=== PATIENT | female | born 1985 | race Caucasian/White ===

== ENCOUNTER 2017-11-19 11:13 | Inpatient (IN) | payer BC, OTHER ==
[~2017-11-19] VITALS: Ht 157.5 cm; Wt 69.9 kg
[~2017-11-19 11:13] MED LIST: CLON0.1T14 PO; GABA-534 PO; HYDR-3895 PO; IBUP-1955 PO; SUMA50TA PO; TRAZ-214 PO
--- NOTE | 2017-11-19 12:10 | NUR ---
Intake Assessment Patient was met in intake office @ 1210. She is accompanied by her Mother and Sister. Patient is alert and oriented, she is anxious and teary eyed. Vital signs : BP 121/81, HR 116, O2 96% and pain level is 7/10. Patient states she relapsed 8 days ago after being sober for 36 days, she was here at [facility] on 11/06/17 for 6 days and then went to [facility] for 30 days but relapsed shortly after due to her unresolved eating disorder and feelings of low self worth and negative emotions, she states this time will be different " because I want to be a good role model for my niece ( who is present in intake office also ) and I'm so sick of this cycle I am in, I just want to get better ". Patient states her PCP is Dr Jae Chen. Patient states that she has been drinking 12 beers or 1.5 L of wine every day for the past 8 days, last consumed 1/2 beer at 10am today 11/19/17. patient will be admitted to unit under the care of Dr Long.
[2017-11-19] MEDS ORDERED: GABA600T2 PO (12:44)
[2017-11-19] MEDS ORDERED: THIAMINE HCL 200 MG/2 ML VIAL IM ONE (12:45)
[2017-11-19] MEDS ORDERED: MIRALAX 17 GM POWD.PACK PO PRN (12:45)
[2017-11-19] MEDS ORDERED: LORAZEPAM 1 MG TABLET PO PRN (12:45)
[2017-11-19] MEDS ORDERED: GABA600T PO (12:45)
[2017-11-19] MEDS ORDERED: MAGNESIUM HYDROXIDE 30 ML LIQUID UDC PO PRN (12:45)
[2017-11-19] MEDS ORDERED: LORAZEPAM 2 MG/1 ML VIAL IM PRN (12:45)
[2017-11-19] MEDS ORDERED: MAG HYDROX/AL HYDROX/SIMETH 30 ML LIQUID UDC PO PRN (12:45)
[2017-11-19] MEDS ORDERED: diphenhydrAMINE 50 MG CAPSULE PO PRN (12:45)
[2017-11-19] MEDS ORDERED: TRAZ150T75 PO (12:46)
[2017-11-19] MEDS ORDERED: DESV100T PO (12:49)
[2017-11-19 12:57] LABS: *URINE HCG, QUAL NEGATIVE (NEGATIVE)
--- NOTE | 2017-11-19 13:00 | NUR ---
Admission Note: Patient is a 32 yr old female who was admitted to [facility] today 11/19/17 for a medically supervised withdrawal from Alcohol ( beer/wine). She is ambulatory with a steady gait and is accompanied by her Mother and Sister, she is oriented x4. Vital signs: BP 121/81, HR 116, T 98, O2 96% RR 20, Ht 5'2" Weight 154 on standing scale. Skin is intact. She reports an allergy to Moxifloxacin, Regular diet , full code , denies any fall or seizure history. She has a past medical history of Severe anxiety disorder, PTSD, Depression, Eating disorder, panic disorder and insomnia. She has a surgical History of Gall bladder Removal in 2014, Gastric Sleeve 2017, right ankle fractures x3, and tail bone fracture. PCP is Dr Jae Chen and Psychiatrist is Dr Puneet Macedo. UDS and blood labs collected. Lung sounds clear and bowel sounds active, no SOB noted. Patient is teary eyed and anxious and states she has pins and needles in her hands and feet, bilateral hand tremors, her stomach is in turmoil and she feels nauseous constantly, Admitting CIWA 25. Patient states that she was here at [facility] 10/06/17 for 6 days and then went to [facility] for 30 days and she relapsed shortly after leaving there. She states that she doesnt know how to deal with her negative emotions, negative body image and feeling of low self worth that cause her to have cravings to drink and this is all affecting her way of life. She states that this time is going to be different " because I don't want to keep struggling and my internal motivator is a desire for a good future for myself. Abuse History: 12 Beers OR 1.5L Wine per day for the past 8 days, last consumed 1 beer @ 10am today 11/19/17. Patient appears slightly intoxicated , VANESSA level is 0.23. patient states no history of SI/HI or psychiatric hospitalizations but has been to treatment many times for her eating disorder and substance abuse: [facility] ( mental Health ) 2006 [facility] 2006 [facility] in [place] ( for Alcohol) 2007 [facility] 2015 [facility] 09/2017 [facility] 10/2017 She states she would like to go to [place] [facility] [place] after detox where she could have help with her eating disorder. She had a period of sobriety from [id number]. Patient instructed on rules/ protocols of the unit and verbalizes understanding. Medications reconciled and sent to pharmacy: Pristiq 100 MG PO QHS.
[2017-11-19 13:05] LABS: *AMPHETAMINE, URINE NEGATIVE (NEGATIVE); *BARBITURATE, URINE NEGATIVE (NEGATIVE); *CANNABINOID, URINE NEGATIVE (NEGATIVE); *COCCAINE, URINE NEGATIVE (NEGATIVE); *OPIATE, URINE NEGATIVE (NEGATIVE); *PHENCYCLIDINE SCREEN,URINE NEGATIVE (NEGATIVE)
--- NOTE | 2017-11-19 13:30 | NUR ---
PRN Ativan Ativan 2MG PO given for admitting CIWA of 25 patient presents with high anxiety/agitation, constant nausea without emesis, bilateral hand tremors, headache, feeling of insides in turmoil, pins and needles in feet and hands and dry mouth. will reassess and monitor
--- NOTE | 2017-11-19 13:30 | NUR ---
PRN Motrin 600mg po and tylenol 650mg po given for headache 610 will reassess
[2017-11-19] MEDS: ACETAMINOPHEN 325 MG TABLET PO PRN ×2 (13:31→20:58)
[2017-11-19] MEDS: LORAZEPAM 1 MG TABLET PO PRN ×4 (13:31→23:04)
[2017-11-19] MEDS: IBUPROFEN 600 MG TABLET PO PRN ×2 (13:31→20:58)
[2017-11-19 13:37] LABS: ETHANOL 234 MG/DL (0-0)
[2017-11-19 13:42] LABS: ALANINE AMINOTRANSFERASE 36 U/L (14-59); ALKALINE PHOSPHATASE 80 U/L (50-136); ASPARTATE AMINOTRANSFERASE 31 U/L (15-37); BILIRUBIN,TOTAL 0.4 mg/dL (0.2-1.0); CARBON DIOXIDE 26 mmol/L (21-32); CHLORIDE 102 mmol/L (98-107); CREATININE 0.4 mg/dL (0.6-1.3); GLUCOSE 110 mg/dL (74-106); MAGNESIUM 1.9 mg/dL (1.8-2.4); POTASSIUM 3.7 mmol/L (3.5-5.1); TOTAL PROTEIN, SERUM 7.4 g/dL (6.4-8.2); UREA NITROGEN, BLOOD 5 mg/dL (7-18)
[2017-11-19] MEDS ORDERED: ONDANSETRON 4 MG/2 ML VIAL IM PRN (13:45)
[2017-11-19 14:03] LABS: BASOPHILS # (AUTO) 0.1 K/uL (0.0-8.0); BASOPHILS % (AUTO) 0.9 % (0.0-2.0); EOSINOPHILS # (AUTO) 0.1 K/uL (0.0-0.7); EOSINOPHILS % (AUTO) 0.6 % (0.0-7.0); HEMATOCRIT 42.8 % (31.2-41.9); HEMOGLOBIN 14.5 g/dL (10.9-14.3); LYMPHOCYTES # (AUTO) 2.2 K/uL (20.0-40.0); LYMPHOCYTES % (AUTO) 23.6 % (20.5-51.5); MEAN CORPUSCULAR HEMOGLOBIN 31.6 uug (24.7-32.8); MEAN CORPUSCULAR HGB CONC 34 g/dL (32.3-35.6); MEAN CORPUSCULAR VOLUME 93.1 fL (75.5-95.3); MONOCYTES # (AUTO) 1.1 K/uL (2.0-10.0); MONOCYTES % (AUTO) 11.6 % (0.0-11.0); NEUTROPHILS # (AUTO) 5.8 K/uL (1.8-8.9); NEUTROPHILS % (AUTO) 63.3 % (38.5-71.5); PLATELET COUNT (AUTO) 293 K/uL (179-408); RED BLOOD CELL COUNT(AUTO) 4.59 MIL/uL (3.63-4.92); WHITE BLOOD COUNT (AUTO) 9.2 K/uL (3.8-11.8)
--- NOTE | 2017-11-19 14:30 | NUR ---
PRN Reassess Motrin and tylenol effective , pain level now 3/10
--- NOTE | 2017-11-19 14:30 | NUR ---
PRN Reassess Ativan 2MG PO effective , CIWA now 17
[2017-11-19] MEDS: ONDANSETRON ODT 4 MG TAB.RAPDIS SL PRN ×2 (15:07→23:07)
--- NOTE | 2017-11-19 15:07 | NUR ---
PRN Zofran Zofran 4MG SL given for reports of constant nausea will reassess
--- NOTE | 2017-11-19 16:00 | NUR ---
CIWA 16 Patient presents with constant nausea, pins and needles in hands and feet, sensitivity to light, lethargy, bilateral hand tremors, increased anxiety and agitation.
--- NOTE | 2017-11-19 16:07 | NUR ---
PRN Reassess Zofran effective, constant nausea is gone , but still has intermittent nausea, instructed to sip on sprite and have some crackers
[2017-11-19 17:03] VITALS: BP 112/80
--- NOTE | 2017-11-19 18:30 | NUR ---
PRN Zofran and Ativan Zofran 4 MG IM given for nausea, dry heaves and vomiting x2 Ativan 2 MG PO given for CIWA 19 and withdrawal symptoms of high anxiety, agitation, restlessness, stomach cramps, bilateral hand tremors and nausea, will endorse to furnace attendant to reassess in 1 hour
--- NOTE | 2017-11-19 18:48 | NUR ---
End Of Shift: Patient is a 32 year old female who was admitted to [facility] 11/19/17 for a medically supervised withdrawal from alcohol ( beer and wine). At this time she is not on any taper but has PRN medications available. PRN medication given on this shift : Ativan 2 MG Po x2, Motrin 600mg PO, Tylenol 650 MG PO and Zofran 4 MG SL and Zofran 4 MG IM. Her withdrawal symptoms present as bilateral hand tremors, nausea/ dry heaves/ vomiting, headache, diaphoresis and high anxiety and agitation. Her last CIWA @ 1830 was 19. She had a fluid intake this shift of 300 ML, 2 voids and O BM. VANESSA level on admission was 0.23. patient also states she battles with an eating disorder Anorexia and Bulimia. Continue to follow MD plan of care and offer support as needed. Endorsed to overnight stocker.
--- NOTE | 2017-11-19 19:15 | NUR ---
START OF SHIFT Patient is a 32-year-old female admitted on 11/19/17 for ETOH withdrawal. Patient is currently not on a taper with PRN medications available for signs and symptoms of withdrawal. Patients last CIWA was 19 per endorsement. Per endorsement, patient received PRN Ativan 2mg x2, PRN Motrin, PRN Tylenol, and PRN Zofran x2; patient reports that PRN medications have been somewhat effective. Upon assessment, patient is alert and oriented. Her chief complaint is nausea; patient received PRN Zofran SL x1 and PRN Zofran IM x1 during day shift. Patient excused herself from PM group due to feeling nauseous. Patient also reports headache 10/10 and states, I hope I can sleep tonight, I usually take Trazodone to help me sleep. Patient is on fall and seizure precautions, denies history of seizure. Safety measures in place, side rails up x2, bed locked in low position, call light within reach. Will continue to monitor.
[2017-11-19 20:00] VITALS: BP 136/93
--- NOTE | 2017-11-19 20:00 | NUR ---
CIWA @ 2000 Patient has a current CIWA of 23; complaining of headache 10/10, constant nausea with "dry heaving" but no emesis, flushing and diaphoresis, high levels of anxiety, and fine tremors. Will administer medication as ordered; will continue to monitor.
--- NOTE | 2017-11-19 20:58 | NUR ---
PRN MOTRIN, TYLENOL, & ATIVAN 2mg Patient has a CIWA of 23 and complains of severe headache, 10/10. PRN Motrin, Tylenol, and Ativan 2mg given PO (for CIWA >16). Safety measures in place, side rails up x2, bed locked in low position, call light within reach. Will monitor for effectiveness.
[2017-11-19] MEDS ORDERED: PATIENT MAY USE OWN MED- MD OK PO SCH (21:45)
[2017-11-19] MEDS ORDERED: IBUPROFEN 600 MG TABLET PO PRN (21:45)
--- NOTE | 2017-11-19 21:58 | NUR ---
PRN MOTRIN, TYLENOL, & ATIVAN REASSESSMENT Patient now has a CIWA of 20, slightly improved since PRN Ativan 2mg was given. Patient reports that her headache has improved; now 6/10 on pain scale. PRN Motrin and Tylenol effective. Safety measures are in place, side rails up x2, bed locked in low position, call light within reach. Will continue to monitor.
[2017-11-19] MEDS: HYDROXYZINE PAMOATE 25 MG CAPSULE PO SCH (22:52)
--- NOTE | 2017-11-19 23:04 | NUR ---
PRN BENADRYL & ATIVAN 2mg Patient currently has a CIWA of 22; PRN Ativan 2mg given PO. Patient reports difficulty sleeping and has requested sleep aid. PRN Benadryl 50mg given PO. Safety measures in place, side rails up x2, bed locked in low position, call light within reach. Will monitor for effectiveness and reassess in one hour.
--- NOTE | 2017-11-19 23:07 | NUR ---
PRN ZOFRAN SL Patient reports that he nausea persists; PRN Zofran given SL. Safety measures in place, call light within reach. Will monitor for effectiveness.
--- NOTE | 2017-11-19 23:37 | NUR ---
PRN ZOFRAN REASSESSMENT Patient appears sleepy and drowsy. When asked if her nausea has improved, patient states, "it's better" without opening her eyes or acknowledging the nurse. PRN Zofran effective in improving patient's nausea. Safety measures are in place, call light is within reach. Will continue to monitor.
[2017-11-20] VITALS: BP 114/79
--- NOTE | 2017-11-20 | NUR ---
CIWA DEFERRED CIWA deferred at this time due to patient sleeping; to be assessed and scored while patient is awake. Patient's BP is 114/79, HR 84, RR 16/min, respirations even and unlabored. Safety measures in place, side rails up x2, bed locked in low position, call light within reach. Will continue to monitor.
--- NOTE | 2017-11-20 00:04 | NUR ---
PRN BENADRYL & ATIVAN REASSESSMENT Patient is observed sleeping in bed with eyes closed, respirations even and unlabored. PRN Benadryl effective. Unable to obtain current CIWA score due to patient sleeping. Safety measures in place, side rails up x2, bed locked in low position, call light within reach. Will continue to monitor.
[2017-11-20] MEDS: HYDROXYZINE PAMOATE 25 MG CAPSULE PO SCH ×3 (01:45→08:52)
--- NOTE | 2017-11-20 01:45 | NUR ---
SCHEDULED VISTARIL HELD Vistaril scheduled for 0145 held and not administered due to patient sleeping.
[2017-11-20 04:00] VITALS: BP 122/86
--- NOTE | 2017-11-20 04:00 | NUR ---
CIWA DEFERRED CIWA deferred at 4AM due to patient sleeping; to be assessed and scored while patient is awake. Patient's respirations are even and unlabored, 16/min. Safety measures in place, side rails up x2, bed locked in low position, call light within reach. Will continue to monitor.
--- NOTE | 2017-11-20 05:30 | NUR ---
CIWA @ 0530 Patient is awake and complains of headache 6/10 and intermittent nausea. Current CIWA is 16. Nurse to administer scheduled Vistaril and PRN Motrin for headache.
[2017-11-20] MEDS: IBUPROFEN 600 MG TABLET PO PRN ×3 (05:38→18:48)
--- NOTE | 2017-11-20 05:38 | NUR ---
PRN MOTRIN Patient reports headache 10/17. PRN Motrin 600mg given PO. Safety measures in place, call light within reach. Will monitor for effectiveness.
--- NOTE | 2017-11-20 06:38 | NUR ---
PRN MOTRIN REASSESSMENT Patient is observed sleeping in bed with eyes closed, respirations even and unlabored. Safety measures in place, call light within reach. Will continue to monitor.
--- NOTE | 2017-11-20 07:14 | NUR ---
END OF SHIFT Patient is a 32-year-old female admitted on 11/19/17 for ETOH withdrawal. Patient is currently not on a taper with PRN medications on hand for signs and symptoms of withdrawal. Patients last CIWA was 16 at 0530 this morning. Patient received the following PRN medications: PRN Ativan 2mg x2, PRN Motrin x2, PRN Tylenol, PRN Benadryl, and PRN Zofran SL; medications were assessed for effectiveness. Patient slept for 7 hours, total intake of 996mL, void x2, stool x0. Patient is on fall and seizure precautions, denies history of seizure. Safety measures in place, side rails up x2, bed locked in low position, call light within reach. Will endorse to day shift.
[2017-11-20 08:00] VITALS: BP 114/75
[2017-11-20] MEDS: ONDANSETRON ODT 4 MG TAB.RAPDIS SL PRN (08:11)
--- NOTE | 2017-11-20 08:11 | NUR ---
START OF SHIFT: Received Pt A/O X 4. She presents with anxious mood and affect. Fine tremors noted . She presents with anxious mood and congruent affect. She reports nausea,h/a 5/10 on pain scale,anxiety,sweats,chills restlessness and irritability. PRN Zofran odt given as ordered to manage nausea before medicating Pt. states she will wait until nausea subsides to take AM meds. Will continue to monitor and manage s/s of w/d.
--- NOTE | 2017-11-20 08:50 | NUR ---
Pt states PRN Zofran was effective in reducing nausea. CIWA 22.PRN Ativan 2 mg PO PRN administered with scheduled. Will monitor effectiveness of PRN medication. Addendum: 11/20/17 at 1030 by JULISSA JAIN RN LANA 22- her s/s of w/d include restlessness,clammy skin,c/o restlessness,sweats,chills,feeling shaky, anxiety and irritability.
[2017-11-20] MEDS: FOLIC ACID 1 MG TABLET PO SCH (08:52)
[2017-11-20] MEDS: MULTIVITAMINS,THERAPEUTIC TABLET PO SCH (08:56)
[2017-11-20] MEDS: THIAMINE HCL 100 MG TABLET PO SCH (08:56)
[2017-11-20] MEDS: GABAPENTIN 300 MG CAPSULE PO SCH ×2 (08:56→12:07)
[2017-11-20] MEDS: LORAZEPAM 1 MG TABLET PO PRN (08:56)
[2017-11-20] MEDS ORDERED: PATIENT MAY USE OWN MED- MD OK PO SCH (09:00)
[2017-11-20] MEDS ORDERED: TUBERCULIN,PURIF.PROT.DERIV. 5 TU/0.1 ML TEST ID ONE (09:00)
[2017-11-20 09:08] LABS: HEPATITIS B SURFACE AG Negative (Negative)
--- NOTE | 2017-11-20 09:50 | NUR ---
Pt states Ativan PRN was effective. CIWA 15. Will continue to monitor and manage s/s of w/d.
[2017-11-20] MEDS ORDERED: 5 DAY TAPER OF LORAZEPAM -SERENITY PROTOCOL PO PRN (11:30)
--- NOTE | 2017-11-20 11:55 | NUR ---
Pt started on 5 d Ativan taper per MD.
[2017-11-20 12:00] VITALS: BP 137/89
[2017-11-20] MEDS: LORAZEPAM 1 MG TABLET PO SCH ×3 (12:07→21:03)
--- NOTE | 2017-11-20 12:08 | NUR ---
CIWA 16 Pt has clammy skin.Fine tremors noted. She has intermittent nausea. She c/o chills,sweats,anxiety,fatigue,restlessness and sensitivity to noise and light. Will continue to monitor.
[2017-11-20 16:00] VITALS: BP 127/86
--- NOTE | 2017-11-20 16:05 | NUR ---
CIWA 17. Clammy skin,fine tremors,anxiety,weakness,fatigue,intermittent h/a and nausea and sensitivity to light and sound noted.
[2017-11-20] MEDS ORDERED: PROMETHAZINE HCL 25 MG TABLET PO PRN (17:45)
[2017-11-20] MEDS ORDERED: LOPERAMIDE HCL 2 MG CAPSULE PO PRN ×2 (17:45)
--- NOTE | 2017-11-20 18:50 | NUR ---
Pt reports nausea,diarrhea and h/a 6/10 on pain scale. PRN Motrin,Phenergan and loperamide given to manage symptoms. Will endorse to night nurse.
--- NOTE | 2017-11-20 19:10 | NUR ---
END OF SHIFT: Pt rested on and off in bed most of day. She c/o nausea,H/A, sweats,chills,fatigue ,weakness and later this afternoon diarrhea. Ativan taper in progress to manage s/s of w/d. Last CI 17. She was given PRN Zofran,Motrin and states they were mildly effective. Imodium and Phenergan given and endorsed to night nurse to monitor effectiveness. She was compliant with increased fluids. Will pass shift report to oncoming night nurse.
--- NOTE | 2017-11-20 19:30 | NUR ---
START OF SHIFT NOTE RECEIVED REPORT FROM DAY SHIFT NURSE. PATIENT IS A 32 YEAR OLD FEMALE ADMITTED FOR ETOH WITHDRAWAL. PATIENT WAS PLACED ON 5 CHERRY ATIVAN TAPER, STARTED TODAY. PATIENT WAS GIVEN PRN IMODIUM , PHENERGAN, MOTRIN AND ZOFRAN. LAST CIWA 17. PATIENT PRESENTS WITH FLAT AFFECT, DEPRESSED MOOD, SAD, WORRIED, ANXIETY, RESTLESSNESS, WANTING TO GO DOWN TO SMOKE , DIARRHEA , NAUSEA, ABDOMINAL CRAMPING, HEADACHE, WEAK, POOR APPETITE, TREMULOUS , EMOTIONAL, TEARY EYES AND SWEATING. SAFETY MEASURES IN PLACE. CALL LIGHT IN REACH. WILL CONTINUE TO MONITOR.
--- NOTE | 2017-11-20 19:48 | NUR ---
PRN PHENERGAN, IMODIUM AND MOTRIN RE-ASSESSMENT PATIENT STATES PHENERGAN. IMODIUM AND MOTRIN INEFFECTIVE. ENCOURAGE FLUIDS. WILL CONTINUE TO MONITOR. Addendum: 11/21/17 at 0651 by MATTEO CALDERON LVN PER PATIENT , SHE WILL GET SCHEDULED MEDICATION THEN WILL REST AFTER AND WILL ASK LATER IF NECESSARY.
[2017-11-20 20:00] VITALS: BP 146/93
--- NOTE | 2017-11-20 20:00 | NUR ---
CIWA ASSESSMENT PATIENT PRESENTS WITH FLAT AFFECT, DEPRESSED MOOD, SAD, WORRIED, ANXIETY, RESTLESSNESS, DIARRHEA , NAUSEA, ABDOMINAL CRAMPING, HEADACHE, WEAK, POOR APPETITE, TREMULOUS , EMOTIONAL, TEARY EYES AND SWEATING. CIWA 20.
[2017-11-20] MEDS: TRAZODONE 100 MG TABLET PO SCH (21:03)
[2017-11-20] MEDS: GABAPENTIN 400 MG CAPSULE PO SCH (21:03)
[2017-11-20] MEDS: SUMATRIPTAN SUCCINATE 50 MG TABLET PO PRN (21:04)
--- NOTE | 2017-11-20 21:04 | NUR ---
PRN IMITREX ADMINISTRATION PATIENT C/O HEADACHE. WILL MONITOR FOR EFFECTIVENESS
[2017-11-20] MEDS: DESVENLAFAXINE 100 MG PO SCH (21:09)
[2017-11-21] VITALS: BP 118/78
[2017-11-21] MEDS: SUMATRIPTAN SUCCINATE 50 MG TABLET PO PRN (00:36)
--- NOTE | 2017-11-21 00:36 | NUR ---
PRN IMITREX ADMINISTRATION PATIENT C/O HEADACHE. WILL MONITOR FOR EFFECTIVENESS
--- NOTE | 2017-11-21 00:36 | NUR ---
CIWA ASSESSMENT PATIENT WOKE UP C/O HEADACHE. PATIENT ANXIOUS, SWEATING AND FINE TREMORS NOTED. CIWA 11.
[2017-11-21 04:00] VITALS: BP 138/94
--- NOTE | 2017-11-21 04:00 | NUR ---
CIWA DEFERRED PATIENT SLEEPING. RESPIRATION EVEN AND UNLABORED. VS REFUSED. WILL CONTINUE TO MONITOR.
--- NOTE | 2017-11-21 07:18 | NUR ---
END OF SHIFT NOTE PATIENT SLEPT 7 HOURS. FLUID INTAKE 796 ML. VOIDED X 1. NO BM. MONITORED PATIENT THROUGHOUT SHIFT. SCHEDULED MEDICATION AND TAPE GIVEN ORDERED, TOLERATED WELL AND NO ADVERSE REACTION. PATIENT PRESENTED WITH FLAT AFFECT, DEPRESSED MOOD, SAD, WORRIED, ANXIETY, DIARRHEA , NAUSEA, ABDOMINAL CRAMPING, HEADACHE, WEAK, POOR APPETITE, TREMULOUS , EMOTIONAL, TEARY EYED AND SWEATING. PATIENT WAS GIVEN PRN IMITREX GIVEN AT 2104. AT 0036, PATIENT WAS C/O HEADACHE, PRN IMITREX GIVEN. PATIENT WAS SEEN BY DR. STOVER DURING SHIFT WITH NO NEW ORDER. . SAFETY MEASURES IN PLACE. CALL LIGHT IN REACH. WILL CONTINUE TO MONITOR . LAST .
[2017-11-21 08:00] VITALS: BP 118/80
--- NOTE | 2017-11-21 08:05 | NUR ---
START OF SHIFT: Received Pt A/O X 4. Ativan taper in progress. CIWA 13. She presents with anxious mood and affect. Fine tremors noted . She reports nausea and H/A 5/10 on pain scale.She also reports anxiety ,restlessness,sweats and fatigue. PRN Zofran odt given as ordered to manage nausea. Motrin PRN given to manage H/A. She states she has increased fluids and will try to attend groups today. Will continue to monitor and manage s/s of w/d.
[2017-11-21] MEDS: THIAMINE HCL 100 MG TABLET PO SCH (08:50)
[2017-11-21] MEDS: ONDANSETRON ODT 4 MG TAB.RAPDIS SL PRN ×2 (08:51→22:01)
[2017-11-21] MEDS: IBUPROFEN 600 MG TABLET PO PRN (08:51)
[2017-11-21] MEDS: FOLIC ACID 1 MG TABLET PO SCH (08:51)
[2017-11-21] MEDS: GABAPENTIN 300 MG CAPSULE PO SCH ×2 (08:51→12:11)
[2017-11-21] MEDS: MULTIVITAMINS,THERAPEUTIC TABLET PO SCH (08:52)
[2017-11-21] MEDS: LORAZEPAM 1 MG TABLET PO SCH ×3 (08:52→21:54)
--- NOTE | 2017-11-21 09:05 | NUR ---
PRN meds effective. Pt states her H/a is now 2/10 and the nausea has subsided. Will continue to monitor and offer support.
[2017-11-21 12:00] VITALS: BP 143/90
--- NOTE | 2017-11-21 12:10 | NUR ---
CIWA 13 Fine tremors noted. She c/o restlessness, anxiety,fatigue and intermittent sweats.
[2017-11-21 16:00] VITALS: BP 144/90
--- NOTE | 2017-11-21 16:15 | NUR ---
CIWA 14. She c/o intermittent nausea. She c/o sweats,anxiety,restlessness and fatigue. Fine tremors noted.
--- NOTE | 2017-11-21 18:17 | NUR ---
Client was prompted to attend group therapy sessions twice each day.
--- NOTE | 2017-11-21 18:49 | NUR ---
END OF SHIFT: Pt continues on Ativan taper to manage s/s of w/d which include intermittent nausea and H/A.She reports sweats,fatigue anxiety restlessness and irritability Last CIWA 14 She was given PRN Zofran,Motrin and states they were effective. She was compliant with increased fluids.She attended some groups. Will pass shift report to oncoming night nurse.
--- NOTE | 2017-11-21 19:20 | NUR ---
START OF SHIFT Patient is a 32-year-old female admitted on 11/19/17 for ETOH withdrawal. Patient is currently on a 5-day Ativan taper, tolerating well; today is day 2. Per endorsement, patient's last CIWA was 14. Patient received PRN Motrin and Zofran earlier this morning; noted to be effective. Upon assessment patient appears with a flat affect, fine tremors noted, she is slightly flushed and diaphoretic, complaining "I still have a headache and my lower back has been hurting." Patient reports that overall treatment has "been helping" and states "I feel more alive today." Patient is on fall and seizure precautions, denies history of seizure. Safety measures are in place, side rails up x2, bed locked in low position, call light within reach. Will continue to monitor.
[2017-11-21 20:00] VITALS: BP 124/84
--- NOTE | 2017-11-21 20:00 | NUR ---
CIWA Patient has a current CIWA of 24. She reports "high anxiety," intermittent nausea, headache 8/10 not relieved by Motrin or Imitrex, lower back ache 8/10, "pins and needles" in her lower extremities, and diaphoresis. Will administer medications as ordered.
--- NOTE | 2017-11-21 21:35 | NUR ---
MD COMMUNICATION Pt complains of headache and body aches 12/17. Dr Long made aware with new orders for Robaxin 750 mg Q8H PRN and Toradol 30 mg IM Q6H PRN. Orders noted and carried out.
[2017-11-21] MEDS: GABAPENTIN 400 MG CAPSULE PO SCH (21:54)
[2017-11-21] MEDS: TRAZODONE 100 MG TABLET PO SCH (21:55)
[2017-11-21] MEDS: DESVENLAFAXINE 100 MG PO SCH (21:55)
[2017-11-21] MEDS: KETOROLAC TROMETHAMINE 30 MG INJ IM PRN (22:02)
--- NOTE | 2017-11-21 22:02 | NUR ---
PRN ZOFRAN & TORADOL IM Patient reports nausea and lower back pain 8/10. Patient describes pain as "aching, throbbing, and tightness that's constant and sharp stinging sometimes." PRN Zofran given SL. PRN Toradol administered IM in patient's right deltoid; tolerated well. Safety measures in place, side rails up x2, bed locked in low position, call light within reach. Will monitor for effectiveness.
--- NOTE | 2017-11-21 22:32 | NUR ---
PRN ZOFRAN & TORADOL REASSESSMENT Patient reports that nausea has improved "a little." Patient states that lower back pain "feels much better." PRN medications effective at this time.Safety measures in place, side rails up x2, bed locked in low position, call light within reach. Will continue to monitor.
[2017-11-22] VITALS: BP 107/65
--- NOTE | 2017-11-22 | NUR ---
CIWA DEFERRED CIWA deferred at this time due to patient sleeping; to be assessed and scored while patient is awake. Respirations are even and unlabored, 16/min. Safety measures in place, side rails up x2, bed locked in low position, call light within reach. Will continue to monitor.
[2017-11-22 04:00] VITALS: BP 113/71
--- NOTE | 2017-11-22 04:00 | NUR ---
CIWA DEFERRED CIWA deferred due to patient sleeping; to be assessed and scored while patient is awake. Safety measures in place, side rails up x2, bed locked in low position, call light within reach. Will continue to monitor.
--- NOTE | 2017-11-22 05:30 | NUR ---
CIWA 16 Patient is awake and states, "I slept well but I still have a headache and anxiety. See my tremors?" Current CIWA is 16.
[2017-11-22] MEDS: SUMATRIPTAN SUCCINATE 50 MG TABLET PO PRN ×2 (06:03→09:15)
[2017-11-22] MEDS: HYDROXYZINE PAMOATE 25 MG CAPSULE PO PRN (06:03)
--- NOTE | 2017-11-22 06:03 | NUR ---
PRN VISTARIL & IMITREX Patient reports headache and increased anxiety and requests pharmacological intervention. PRN Vistaril and Imitrex given PO. Safety measures in place, call light within reach. Will monitor for effectiveness.
--- NOTE | 2017-11-22 06:35 | NUR ---
PRN TORADOL IM RE-ASSESSMENT PATIENT IN BED RESTING. PATIENT STATES TORADOL IM HELPFUL. SHE STATES SHE FEELS MUCH BETTER. WILL CONTINUE TO MONITOR
--- NOTE | 2017-11-22 07:03 | NUR ---
PRN VISTARIL & IMITREX REASSESSMENT Patient reports that headache and anxiety have improved; PRN Imitrex and Vistaril effective. Safety measures in place, call light within reach. Will continue to monitor.
--- NOTE | 2017-11-22 07:15 | NUR ---
END OF SHIFT Patient is a 32-year-old female admitted on 11/19/17 for ETOH withdrawal. Patient is currently on a 5-day Ativan taper, tolerating well; today will be day 3. Patient's last CIWA was 16. Patient received PRN Toradol IM, Zofran SL, Vistaril PO, and Imitrex PO. Despite PRN medications, patient reports minimal relief from her discomfort. Patient slept for 7 hours, total intake 1,750mL, void x3, stool x0. Patient is on fall and seizure precautions, denies history of seizure. Safety measures are in place, side rails up x2, bed locked in low position, call light within reach. Will endorse to day shift.
--- NOTE | 2017-11-22 07:45 | NUR ---
START OF SHIFT Pt is a 32 yr old female, AA&OX4. Pt was admitted on 11/19/17 for ETOH withdrawal and is on 5 day Ativan taper as ordered. Received report from film processing shift supervisor nurse. Pt received Toradol PRN, Zofran SL PRN, Vistaril PRN and Imitrex PRN during the night. Pt slept for 7 hrs. last CIWA score was 16. Pt is currently c/o anxiety, agitation, nausea, chills, lower back pain, headache and pins and needles sensation on both feet. Skin is intact, warm and moist to touch. Pt was encouraged increase fluid intake for hydration. Safety precautions observed. Call light is within reach. Will continue to monitor.
[2017-11-22 08:00] VITALS: BP 140/95
[2017-11-22 08:05] LABS: BILIRUBIN,TOTAL 0.4 mg/dL (0.2-1.0); CREATININE 0.8 mg/dL (0.6-1.3); POTASSIUM 3.8 mmol/L (3.5-5.1); TOTAL PROTEIN, SERUM 7.2 g/dL (6.4-8.2)
[2017-11-22] MEDS: MULTIVITAMINS,THERAPEUTIC TABLET PO SCH (09:15)
[2017-11-22] MEDS: LORAZEPAM 1 MG TABLET PO SCH ×4 (09:15→21:42)
[2017-11-22] MEDS: FOLIC ACID 1 MG TABLET PO SCH (09:15)
[2017-11-22] MEDS: THIAMINE HCL 100 MG TABLET PO SCH (09:15)
--- NOTE | 2017-11-22 09:15 | NUR ---
PRN GIVEN Pt c/o headache 09/16. Imitrex 25mg PO PRN was given as ordered. Encouraged increase fluid intake. Will continue to monitor.
[2017-11-22] MEDS: GABAPENTIN 300 MG CAPSULE PO SCH ×2 (09:16→12:11)
--- NOTE | 2017-11-22 10:15 | NUR ---
PRN RE-ASSESSMENT Imitrex PRN was effective. Pt denies any headache at this time. Will continue to monitor.
[2017-11-22 12:00] VITALS: BP 132/98
[2017-11-22] MEDS: KETOROLAC TROMETHAMINE 30 MG INJ IM PRN ×2 (12:16→21:43)
--- NOTE | 2017-11-22 12:18 | NUR ---
PRN GIVEN pt c/o lower back pain 01/17. Facial grimacing and rubbing site is noted. Toradol 30mg IM PRN was given as ordered. Will continue to monitor.
--- NOTE | 2017-11-22 13:12 | NUR ---
Client was prompted to attend daily group counseling sessions.
--- NOTE | 2017-11-22 13:18 | NUR ---
PRN RE-ASSESSMENT Toradol PRN was effective. Pt denies any pain or discomfort at this time. Will continue to monitor.
[2017-11-22 16:00] VITALS: BP 119/89
--- NOTE | 2017-11-22 19:20 | NUR ---
END OF SHIFT Pt is a 32 yr old female, AA&OX4. Pt was admitted on 11/19/17 for ETOH withdrawal and is on 5 day Ativan taper as ordered. Pt has been cooperative with medication regimen and plan of care. Pt was observed attending group therapy during the day. Pt has been c/o increase anxiety, agitation, tremors, chills, sweats, lower back pain, nausea, headache and pins and needles on both feet. Pt was given Imitrex 25mg PO PRN for headache and Toradol 30gm IM PRN for lower back pain 01/17. Medication was effective. Last CIWA score was 11 at 1600. Pt was encouraged increase fluid intake for hydration. Safety precautions observed. Call light is within reach. Endorsed to driver courier nurse to continue with care.
--- NOTE | 2017-11-22 19:30 | NUR ---
START OF SHIFT Patient is a 32-year-old female admitted on 11/19/17 for ETOH withdrawal. Patient is currently on a 5-day Ativan taper, tolerating well; today is day 3. Per endorsement, patient's last CIWA was 11. Patient received PRN Imitrex and PRN Toradol IM earlier today; noted to be effective. Upon assessment, patient is alert and oriented x4 and appears disheveled. Patient continues to complain of intermittent nausea and constant lower back pain, as well as headache 01/17. Patient is on fall and seizure precautions, denies history of seizure. Safety measures are in place, side rails up x2, bed locked in low position, call light within reach. Will continue to monitor.
[2017-11-22 20:00] VITALS: BP 138/92
--- NOTE | 2017-11-22 20:00 | NUR ---
CIWA 20 Patient reports severe headache and lower backache, increased anxiety and agitation; current CIWA 20. Will administer medications appropriately and continue to monitor.
[2017-11-22] MEDS: ONDANSETRON ODT 4 MG TAB.RAPDIS SL PRN (20:51)
--- NOTE | 2017-11-22 20:51 | NUR ---
PRN ZOFRAN Patient reports nausea with no episodes of emesis, but several "dry heaves." PRN Zofran given SL. Safety measures in place, call light within reach. Will monitor for effectiveness.
--- NOTE | 2017-11-22 21:21 | NUR ---
PRN ZOFRAN REASSESSMENT Patient reports nausea has improved; PRN Zofran effective. Safety measures in place, side rails up x2, bed locked in low position, call light within reach. Will continue to monitor.
[2017-11-22] MEDS: DESVENLAFAXINE 100 MG PO SCH (21:40)
[2017-11-22] MEDS: CLONIDINE HCL 0.1 MG TABLET PO PRN (21:41)
[2017-11-22] MEDS: GABAPENTIN 400 MG CAPSULE PO SCH (21:42)
--- NOTE | 2017-11-22 21:43 | NUR ---
PRN CLONIDINE & TORADOL Patient reports anxiety and agitation, BP is elevated; PRN Clonidine given PO at 2141. Patient reports severe lower back pain 9/10; PRN Toradol given IM. Safety measures in place, side rails up x2, bed locked in low position, call light within reach. Will monitor for effectiveness.
[2017-11-22] MEDS ORDERED: SUMATRIPTAN SUCCINATE 50 MG TABLET PO PRN (21:45)
[2017-11-22] MEDS: TRAZODONE 100 MG TABLET PO SCH (22:01)
--- NOTE | 2017-11-22 22:13 | NUR ---
PRN TORADOL REASSESSMENT Patient reports that pain is 6/10 for lower backache; PRN Toradol effective. Safety measures in place, call light within reach. Will continue to monitor.
--- NOTE | 2017-11-22 22:41 | NUR ---
PRN CLONIDINE REASSESSMENT Patient reports feeling "a little less anxious" and feels that the Clonidine helped. PRN Clonidine effective. Safety measures in place, side rails up x2, bed locked in low position, call light within reach. Will continue to monitor.
[2017-11-23] VITALS: BP 120/72
--- NOTE | 2017-11-23 | NUR ---
CIWA DEFERRED CIWA deferred at this time due to patient sleeping; to be assessed while patient is awake, per protocol. Safety measures in place, bed locked in lowest position, side rails up x2, call light within reach. Will continue to monitor.
--- NOTE | 2017-11-23 04:00 | NUR ---
CIWA DEFERRED CIWA deferred at this time due to patient sleeping; to be assessed and scored while patient is awake. Safety measures in place, side rails up x2, bed locked in low position, call light within reach. Will continue to monitor.
[2017-11-23 04:30] VITALS: BP 103/64
--- NOTE | 2017-11-23 04:30 | NUR ---
CIWA 15 Patient reports "I slept pretty well" and states that lower back pain is "much better for right now." Current CIWA is 15. Will continue to monitor.
--- NOTE | 2017-11-23 06:00 | NUR ---
END OF SHIFT Patient is a 32-year-old female admitted on 11/19/17 for ETOH withdrawal. Patient is currently on a 5-day Ativan taper, tolerating well; today will be day 4 of taper. Patients last CIWA was 15 at 0430. Patient received PRN Zofran, Toradol, and Clonidine last night; noted to be effective. Patient slept for 5 hours, total intake of 1,800mL, void x3, stool x0. Patient is on fall and seizure precautions, denies history of seizure. Safety measures are in place, side rails up x2, bed locked in low position, call light within reach. Endorsed to Alfonso Sanchez RN, at 0600.
--- NOTE | 2017-11-23 06:51 | NUR ---
END OF SHIFT PT'S CONDITION REMAINS UNCHANGED ENDORSED BY NURSE BEN.PT SLEPT 6 HOURS,FLUID INTAKE WAS 1800 MLS,VOIDED X 3. NO B/M REPORTED.WILL ENDORSE CARE TO ONCOMING SHIFT NURSE.
--- NOTE | 2017-11-23 07:30 | NUR ---
START OF SHIFT Pt is a 32 yr old female, AA&OX4. Pt was admitted on 11/19/17 for ETOH withdrawal and is on 5 day Ativan taper as ordered. Received report from shiftman nurse. Pt received Toradol PRN, Zofran SL PRN and Clonidine PRN during the night. Pt slept for 7 hrs. Last CIWA score was 15. Pt is currently c/o anxiety, chills, lower back pain, headache and pins and needles sensation on both feet. Skin is intact, warm and moist to touch. Pt was encouraged increase fluid intake for hydration. Safety precautions observed. Call light is within reach. Will continue to monitor
[2017-11-23 08:00] VITALS: BP 117/75
[2017-11-23] MEDS: GABAPENTIN 300 MG CAPSULE PO SCH ×2 (08:57→12:20)
[2017-11-23] MEDS: IBUPROFEN 600 MG TABLET PO PRN (08:57)
[2017-11-23] MEDS: THIAMINE HCL 100 MG TABLET PO SCH (08:57)
[2017-11-23] MEDS: LORAZEPAM 1 MG TABLET PO SCH ×3 (08:57→20:30)
[2017-11-23] MEDS: FOLIC ACID 1 MG TABLET PO SCH (08:57)
[2017-11-23] MEDS: MULTIVITAMINS,THERAPEUTIC TABLET PO SCH (08:57)
--- NOTE | 2017-11-23 08:57 | NUR ---
PRN GIVEN Pt c/o headache and lower back pain 11/16. Facial grimacing is observed. Motrin 600mg PO PRN was given as ordered. Encouraged increase fluid intake. Will continue to monitor.
--- NOTE | 2017-11-23 09:57 | NUR ---
PRN RE-ASSESSMENT Motrin PRN was effective. Pt states pain level subsided to 4/10 and pain level is tolerable. Encouraged increase fluid intake. Will continue to monitor.
[2017-11-23 12:00] VITALS: BP 136/93
[2017-11-23] MEDS: SUMATRIPTAN SUCCINATE 50 MG TABLET PO PRN ×2 (12:23→16:57)
--- NOTE | 2017-11-23 12:23 | NUR ---
PRN GIVEN Pt is c/o migraine. Facial grimacing is observed. Imitrex 50mg PO PRn was given as ordered. Will continue to monitor. Addendum: 11/23/17 at 1422 by EBENEZER STRAUSS LVN CIWA score was 13 for increase anxiety, agitation, sweats and headache.
--- NOTE | 2017-11-23 13:23 | NUR ---
PRN RE-ASSESSMENT Imitrex PRN was effective. Pt denies any headache at this time. Will continue to monitor.
--- NOTE | 2017-11-23 14:28 | NUR ---
Client was prompted to attend twice daily group therapy sessions.
[2017-11-23 16:00] VITALS: BP 124/86
[2017-11-23] MEDS: KETOROLAC TROMETHAMINE 30 MG INJ IM PRN (16:58)
--- NOTE | 2017-11-23 16:58 | NUR ---
PRN GIVEN Pt c/o a migraine and lower back pain 12/17. Pt received Imitrex 50mg PO PRN and Toradol 30mg IM PRN as ordered. Medication angela well. Encouraged increase fluid intake. Will continue to monitor.
--- NOTE | 2017-11-23 17:58 | NUR ---
PRN RE-ASSESSMENT Toradol PRN and Imitrex PRN was effective. Pt states pain level subsided to 3/10. Will continue to monitor.
--- NOTE | 2017-11-23 19:00 | NUR ---
END OF SHIFT Pt is a 32 yr old female, AA&OX4. Pt was admitted on 11/19/17 for ETOH withdrawal and is on 5 day Ativan taper as ordered. Pt has been cooperative with medication regimen and plan of care. Pt was observed attending group therapy during the day. Pt has been c/o increase anxiety, agitation, chills, sweats, lower back pain, headache and pins and needles on both feet. Skin is intact, warm and moist to touch. , Pt was given Motrin 600mg PO PRN at 0857 and Imitrex 50mg PO PRN for headache at 1223 and at 1657 and Toradol 30mg IM PRN at 1658. Medication was effective. Last CIWA score was 12 at 1600. Pt was encouraged increase fluid intake for hydration. Safety precautions observed. Call light is within reach. Endorsed to production shift supervisor nurse to continue with care.
--- NOTE | 2017-11-23 19:30 | NUR ---
START OF SHIFT NOTE RECEIVED REPORT FROM DAY SHIFT NURSE. PATIENT IS A 32 YEAR OLD FEMALE ADMITTED FOR OPIATE WITHDRAWAL. PATIENT IS ON 4TH DAY OF HER 5 DAY ATIVAN TAPER. PATIENT WAS C/O HEADACHE DURING THE DAY. PATIENT WAS GIVEN PRN IMITREX X 2 , MOTRIN AND TORADOL IM. LAST CIWA 12. PATIENT IN THE GROUP AT THIS TIME. ROOM DIRTY, GARBAGE AND CLOTHES EVERYWHERE. SAFETY MEASURES IN PLACE. CALL LIGHT IN REACH. WILL CONTINUE TO MONITOR.
[2017-11-23 20:00] VITALS: BP 128/85
--- NOTE | 2017-11-23 20:00 | NUR ---
CIWA ASSESSMENT PATIENT PRESENTS WITH FLAT AFFECT, WORRIED, ANXIOUS, NAUSEATED BUT NO EMESIS, RESTLESS, IRRITABLE AND AGITATED. PATIENT STATES SHE HAD HEADACHE EARLIER BUT NOW SHE HAS BACK PAIN. CIWA 12.
[2017-11-23] MEDS: METHOCARBAMOL 750 MG TABLET PO PRN (20:30)
[2017-11-23] MEDS: TRAZODONE 100 MG TABLET PO SCH (20:30)
[2017-11-23] MEDS: GABAPENTIN 400 MG CAPSULE PO SCH (20:30)
--- NOTE | 2017-11-23 20:30 | NUR ---
PRN MOTRIN ADMINISTRATION PATIENT C/O BACK ACHE. WILL MONITOR FOR EFFECTIVENESS Addendum: 11/24/17 at 0715 by MATTEO CALDERON LVN CLARIFICATION: PATIENT WAS GIVEN ROBAXIN NOT MOTRIN
[2017-11-23] MEDS: ONDANSETRON ODT 4 MG TAB.RAPDIS SL PRN (20:31)
--- NOTE | 2017-11-23 20:31 | NUR ---
PRN ZOFRAN SL ADMINISTRATION PATIENT NAUSEATED BUT NO EMESIS . WILL MONITOR FOR EFFECTIVENESS
[2017-11-23] MEDS: DESVENLAFAXINE 100 MG PO SCH (20:33)
--- NOTE | 2017-11-23 21:01 | NUR ---
PRN ZOFRAN SL ASSESSMENT PATIENT STATES ZOFRAN HELPFUL. NAUSEA CEASED. WILL CONTINUE TO MONITOR.
--- NOTE | 2017-11-23 21:30 | NUR ---
JOSE J COHN RE-ASSESSMENT PATIENT STATES MOTRIN WAS HELPFUL AND EFFECTIVE. NO PAIN AT THIS TIME Addendum: 11/24/17 at 0716 by MATTEO CALDEORN LVN CLARIFICATION: PATIENT WAS GIVEN ROBAXIN. THIS CHARTING IS FOR ROBAXIN RE-ASSESSMENT
--- NOTE | 2017-11-24 05:00 | NUR ---
CIWA ASSESSMENT PATIENT WOKE ANXIOUS, WANTING TO GO TO SMOKE, RESTLESS , IRRITATED , RESTLESS LEGS AND MILD HEADACHE. CIWA 11
[2017-11-24] MEDS: KETOROLAC TROMETHAMINE 30 MG INJ IM PRN ×2 (06:05→20:47)
[2017-11-24] MEDS: HYDROXYZINE PAMOATE 25 MG CAPSULE PO PRN (06:05)
--- NOTE | 2017-11-24 06:05 | NUR ---
PRN TORADOL IM AND VISTARIL ADMINISTRATION PATIENT C/O LOWER BACK PAIN AND ANXIETY. WILL MONITOR FOR EFFECTIVENESS
--- NOTE | 2017-11-24 06:05 | NUR ---
CIWA ASSESSMENT PATIENT ANXIOUS, RESTLESS, UNABLE TO SLEEP DUE TO ANXIETY AND LOWER BACK PAIN. CIWA 11.
--- NOTE | 2017-11-24 06:35 | NUR ---
PRN TORADOL IM RE-ASSESSMENT PATIENT IN BED RESTING. PATIENT STATES TORADOL IM INJECTION HELPFUL. PAIN SUBSIDED. SHE STATES SHE FEELS MUCH BETTER. WILL CONTINUE TO MONITOR
--- NOTE | 2017-11-24 07:05 | NUR ---
PRN VISTARIL RE-ASSESSMENT PATIENT IN BED RESTING AT THIS TIME. RESPIRATION EVEN AND UNLABORED. PATIENT STATES ANXIETY SUBSIDED. WILL CONTINUE TO MONITOR.
--- NOTE | 2017-11-24 07:12 | NUR ---
END OF SHIFT NOTE PATIENT SLEPT 7 HOURS. FLUID INTAKE 2,896 ML. VOIDED X 4. NO BM. MONITORED PATIENT THROUGHOUT SHIFT. PATIENT WAS C/O BACK PAIN DURING SHIFT. PRN ROBAXIN GIVEN AND EFFECTIVE. PATIENT NAUSEATED ,PRN ZOFRAN SL GIVEN AND EFFECTIVE. AT 0500, PATIENT WOKE UP, WAS ANXIOUS AND WENT DOWN TO SMOKE. AT 0605, PATIENT C/O ANXIETY, UNABLE TO GO BACK TO SLEEP DUE TO ANXIETY AND LOWER BACK PAIN. PRN TORADOL IM AND VISTARIL GIVEN. PATIENT COMPLIANT WITH MEDICATION AND TREATMENT PLAN. PATIENT ATTENDED GROUPS. LAST CI. SAFETY MEASURES IN PLACE. CALL LIGHT IN REACH. WILL CONTINUE TO MONITOR.
--- NOTE | 2017-11-24 07:45 | NUR ---
START OF SHIFT Pt is a 32 yr old female, AA&OX4. Pt was admitted on 11/19/17 for ETOH withdrawal and is on 5 day Ativan taper as ordered. Received report from water team leader nurse. Pt received Toradol PRN, Zofran SL PRN, Robaxin PRN and Vistaril PRN during the night. Pt slept for 7 hrs. Last CIWA score was 11. Pt is currently c/o anxiety, sweats, restlessness, lower back pain, and headache. Skin is intact, warm and moist to touch. Pt was encouraged increase fluid intake for hydration. Safety precautions observed. Call light is within reach. Will continue to monitor.
[2017-11-24 08:00] VITALS: BP 120/78
--- NOTE | 2017-11-24 08:00 | NUR ---
CIWA 10 CIWA score is 10 for anxiety, agitation, sweats, restlessness, and headache
[2017-11-24] MEDS: MULTIVITAMINS,THERAPEUTIC TABLET PO SCH (08:53)
[2017-11-24] MEDS: LORAZEPAM 1 MG TABLET PO SCH ×2 (08:53→20:45)
[2017-11-24] MEDS: THIAMINE HCL 100 MG TABLET PO SCH (08:53)
[2017-11-24] MEDS: FOLIC ACID 1 MG TABLET PO SCH (08:53)
[2017-11-24] MEDS: GABAPENTIN 300 MG CAPSULE PO SCH ×2 (08:53→12:06)
[2017-11-24] MEDS: METHOCARBAMOL 750 MG TABLET PO PRN ×2 (09:02→17:54)
--- NOTE | 2017-11-24 09:02 | NUR ---
PRN GIVEN Pt c/o lower back pain 12/17. Robaxin 750mg PO PRN was given as ordered. Encouraged increase fluid intake. will continue to monitor.
--- NOTE | 2017-11-24 10:02 | NUR ---
PRN RE-ASSESSMENT Robaxin PRN was effective. Pt states pain level subsided to 4/10. Will continue to monitor.
[2017-11-24 12:00] VITALS: BP 135/93
[2017-11-24 16:00] VITALS: BP 130/94
[2017-11-24] MEDS: SUMATRIPTAN SUCCINATE 50 MG TABLET PO PRN (17:54)
--- NOTE | 2017-11-24 17:54 | NUR ---
PRN GIVEN Pt is c/o lower back pain and a migraine. Robaxin 750mg PO PRN and Imitrex 50mg PO PRN was given as ordered. Encouraged increase fluid intake. Will continue monitor
--- NOTE | 2017-11-24 18:54 | NUR ---
PRN RE-ASSESSMENT Robaxin PRN and Imitrex PRN was mildly effective. Pt continue to c/o lower back and headache 10/17. Encouraged increase fluid intake.
--- NOTE | 2017-11-24 19:00 | NUR ---
END OF SHIFT Pt is a 32 yr old female, AA&OX4. Pt was admitted on 11/19/17 for ETOH withdrawal and is on 5 day Ativan taper as ordered. Pt has been cooperative with medication regimen and plan of care. Pt was observed attending group therapy during the day. Pt has been c/o increase anxiety, agitation, chills, sweats, chronic lower back pain and headache throughout the day. Skin is intact, warm and moist to touch. Pt was given Robaxin 750mg PO PRN at 0902 and Imitrex 50mg PO PRN for headache at 1754 Robaxin 750mg PO PRN at 1754. Medication was mildly effective. Last CIWA score was 13 at 1600. Pt was encouraged increase fluid intake for hydration. Safety precautions observed. Call light is within reach. Endorsed to power and recovery shift engineer nurse to continue with care.
--- NOTE | 2017-11-24 19:00 | NUR ---
START OF SHIFT NOTE: 32 year old female admitted to [facility] for ETOH (Wine and Beer) withdrawal, continues ordered 5 day Ativan with tolerated well. Patient is alert and oriented x4. She is noted easy overwhelmed, with anxious mood and liable affect . Emotional support provided. Encouraged to expresses her feelings. She is noted disheveled, unkempt with uncombed hair. Education in safety and hygiene care provided to patient. Encouraged to independently perform hygiene care. The most recent CIWA=13 at 1600: The patient presented with moderate withdrawal symptoms of anxiety, agitation, nervousness, irritability, nausea, nasal congestion, stomach cramps, generalized body aches, myalgia, sweating, restlessness, tremors, and fatigue. PRN Robaxin PO administrated for myalgia at 0902 at 1648 and at 1754, and PRN Imitrex administrated for headache at 1754, and were effective. Patient remains compliant with treatment, medications, and diet regime. Encouraged to fluids intake as tolerated. Encouraged to attend group activities. Safe and calm environment with minimized noises was provided Safety measures in place: Call light within reach, bed is locked in lowest position, and padded bed rails up bilaterally. Patient endorsed by outgoing day shift nurse. Will continue to monitor closely.
[2017-11-24 20:00] VITALS: BP 119/65
[2017-11-24] MEDS: GABAPENTIN 400 MG CAPSULE PO SCH (20:45)
[2017-11-24] MEDS: DESVENLAFAXINE 100 MG PO SCH (20:45)
[2017-11-24] MEDS: TRAZODONE 100 MG TABLET PO SCH (20:47)
--- NOTE | 2017-11-24 20:47 | NUR ---
PRN TORADOL 30 MG/1ML IM ADMINISTRATION Patient c/o severe headache: "01/17", and asked aid. PRN Toradol 30 mg/1 ml IM administrated to Upper Right Dorsogluteal Site, as ordered. Patient tolerated well. All needs met. Safety measures on place. Call light within reach, bed locked in lowest position, and padded rails up bilaterally. Will continue to monitor closely.
--- NOTE | 2017-11-24 21:17 | NUR ---
PRN TORADOL IM RE-ASSESSMENT PRN Toradol 30 mg/1 ml IM administrated for severe headache: "910" at 2046, was effective. The patient reports headache decreased from "9/10" to "3/10". Safe and calm environment with minimized noises was provided. All needs met. Safety measures on place. Call light within reach, bed locked in lowest position, padded rails up bilaterally. Will continue to monitor closely.
--- NOTE | 2017-11-25 | NUR ---
VS REFUSED, CIWA DEFERRED VS refused, CIWA deferred at 0000 due to patient sleeping; to be assessed and scored while patient is awake. Respirations are even and unlabored. RR:14. Safe and calm environment provided. All needs met. Safety measures in place: Call light within reach, bed locked in lowest position, and padded bed rails up bilaterally. Will continue to monitor closely.
[2017-11-25] MEDS ORDERED: QUET100T PO (02:21)
--- NOTE | 2017-11-25 04:00 | NUR ---
VS REFUSED, CIWA DEFERRED VS refused, CIWA deferred at 0400 due to patient sleeping; to be assessed and scored while patient is awake. Respirations are even and unlabored. RR: 16. Safe and calm environment provided. All needs met. Safety measures in place: Call light within reach, bed locked in lowest position, and padded bed rails up bilaterally. Will continue to monitor closely.
--- NOTE | 2017-11-25 07:06 | NUR ---
END OF SHIFT NOTE Presented patient is a 32 old female continues 5 day Ativan Taper ordered for Alcohol withdrawal. The patient tolerated well. Patient reported Allergy to Avelox (Moxifloxacin). Patient is on Full Code, Regular Diet, Fall and Seizures Precautions. Patient denies seizures history. Patient is alert and oriented x4, with stable gate, and soft, clear speech. Patient appears sad, worry, with anxious mood. Patient noted disheveled, unkempt, uncombed. CIWA=15 at 2000: Patient presented with anxiety, agitation, depression, irritation, nervousness, tremors, sweating, headache, body aches, fatigue, and restlessness. VS refused, CIWA deferred at 0000 and 0400 due to patient sleeping; to be assessed and scored while patient is awake. Patient denies SI/HI. Skin is intact, warm, and dry to touch. PRN Toradol 30 mg/1 ml IM administrated for severe headache: "9/10" at 2046, was effective. Patient encouraged to increase oral fluid intake as tolerated. Patient encouraged to attend group activities Patient 8 hours, intake 3,250 ml, voided x10, stool x1. All needs met. Safety measures in the place by hospital policy: Call light within reach, bed in the lowest position and locked, padded rails up x2. Patient endorsed to day shift nurse in stable condition, report given.
--- NOTE | 2017-11-25 07:48 | NUR ---
BEGINNING OF SHIFT Patient endorsement report received from night filler nurse, all pertinent information was discussed. Patient with admitting Dx: ETOH withdrawal. Patient continues on 5 day Ativan taper as ordered, and is scheduled to begin day 5 of taper, will monitor closely during shift. As per night filler patient slept for a total of 8 hours, received PRN: Toradol. Patient with LAST CIWA score of: 15. Patient received awake, alert and oriented x4, educated regarding plan of care for the day and medication regimen with good verbal understanding. Safety measures are in place. call light with in reach. Will continue to monitor.
[2017-11-25 08:35] VITALS: BP 123/73
[2017-11-25] MEDS: MULTIVITAMINS,THERAPEUTIC TABLET PO SCH (08:38)
[2017-11-25] MEDS: FOLIC ACID 1 MG TABLET PO SCH (08:38)
[2017-11-25] MEDS: GABAPENTIN 300 MG CAPSULE PO SCH ×2 (08:38→12:09)
[2017-11-25] MEDS: THIAMINE HCL 100 MG TABLET PO SCH (08:38)
[2017-11-25] MEDS: METHOCARBAMOL 750 MG TABLET PO PRN (08:41)
[2017-11-25] MEDS: SUMATRIPTAN SUCCINATE 50 MG TABLET PO PRN (08:41)
[2017-11-25] MEDS: KETOROLAC TROMETHAMINE 30 MG INJ IM PRN ×2 (08:42→21:30)
--- NOTE | 2017-11-25 08:42 | NUR ---
PRN TORADOL/IMITREX/ROBAXIN Patient reports back pain 8/10, Migraine 8/10, and Myalgia 8/10. Provided patient with non pharmacological interventions with no relief. Patient was Administered Toradol Inj as ordered for back pain, inj well tolerated, Administered Imitrex for migraine, and Robaxin for myalgia, will monitor effectiveness of all mediations. Provided patient with calm and quiet environment, safety measures are in place. encouraged increase in PO fluid intake as tolerated.
--- NOTE | 2017-11-25 09:00 | NUR ---
CIWA ASSESSMENT Patient in room, noted with depressed and anxious mood, has labile affect. Patient presenting with: tremors, sweats, anxiety, difficulty sitting still, with CIWA score of: 7. Patient continues on 5 day Ativan taper as ordered, medication administered as ordered, well tolerated. will continue to monitor.
--- NOTE | 2017-11-25 09:12 | NUR ---
TORADOL REASSESSMENT Medication effective, current pain level 5/10. Will continue to monitor.
--- NOTE | 2017-11-25 09:42 | NUR ---
IMITREX/ROBAXIN REASSESSMENT Patient reports medication effective, no longer has a migraine. Robaxin effective as well, patient reports decrease in myalgia, current pain level 5/10, will continue to monitor, safety measures are in place.
[2017-11-25] MEDS: HYDROXYZINE PAMOATE 25 MG CAPSULE PO PRN ×2 (12:09→21:28)
[2017-11-25] MEDS: CLONIDINE HCL 0.1 MG TABLET PO PRN (12:16)
--- NOTE | 2017-11-25 12:16 | NUR ---
PRN CLONIDINE/VISTARIL Patient noted with anxious mood. Reports increase in anxiety and feeling "angry" noted agitated, wringing hands, and pacing. provided patient with non pharmacological interventions with no relief, administered Clonidine 0.1mg PO and Vistaril 50mg PO as ordered, BP: 156/93 HR: 77 Will monitor effectiveness of medications.
[2017-11-25 12:40] VITALS: BP 156/93
--- NOTE | 2017-11-25 13:00 | NUR ---
CIWA ASSESSMENT Patient continues to exhibit the following s/sx of withdrawal: tremors, sweats, anxiety, difficulty sitting still, with CIWA score of: 10. Encouraged patient to participate in group therapies/sessions to learn new coping skills to prevent relapse.
--- NOTE | 2017-11-25 13:16 | NUR ---
VISTARIL/CLONIDINE REASSESSMENT Per patient medication effective, feels less anxious and less agitated. Encouraged patient to participate in therapy sessions to learn new coping skills. will continue to monitor closely.
[2017-11-25 17:21] VITALS: BP 109/76
--- NOTE | 2017-11-25 18:54 | NUR ---
START OF SHIFT NOTE: Presented patient is a 32 year old female completed 5 day Ativan Taper ordered for Alcohol (Wine and Beer) withdrawal. The patient tolerated well. Upon endorsement, the patient is alert and oriented x4, cooperative, with soft and clear speech, ambulatory with steady gait. Last CIWA=10 at 1721: The patient presented with moderate withdrawal symptoms of anxiety, agitation, nervousness, irritability, nausea, nasal congestion, generalized body aches, headache, sweating, restlessness, tremors, and fatigue. PRN Toradol 30mg/1 ml IM administrated for low back pain "8" at 0842, PRN Robaxin 750 mg PO administrated for myalgia "810"at 0842, PRN Imitrex PO x2 administrated for headache at 0842 and 0942, PRN Clonidine 0.1 mg PO administrated for BP: 156/93, HR:77 at 1216, PRN Vistaril 50 mg PO administrated for anxiety at 1216 and were effective. Patient remains compliant with treatment, medications, and diet regime. Encouraged to fluids intake as tolerated. Encouraged to attend group activities. Patient scheduled for discharging tomorrow. Safe and calm environment with minimized noises was provided. Safety measures in place: Call light within reach, bed is locked in lowest position, and padded bed rails up bilaterally. Patient endorsed by outgoing day shift nurse. Will continue to monitor closely.
--- NOTE | 2017-11-25 18:54 | NUR ---
END OF SHIFT Patient continues under close observation, completed 5 day Ativan taper as ordered, at times noted with increase anxiety and agitation. also noted with depressed and anxious mood, has labile affect. During shift presented with: tremors, sweats, anxiety, difficulty sitting still, Last CIWA score of: 10. Received PRN: clonidine, Vistaril, Toradol inj, Imitrex and Robaxin during shift, medications were effective. Encouraged patient to participate in therapy sessions to learn new coping skills to prevent relapse, denies SI/HI. Patient encouraged to develop coping skills and utilization of non pharmacological interventions. Patient is scheduled to be discharged tomorrow, noted self motivated towards sobriety. Patient endorsed to hemming and tacking machine operator nurse, all pertinent information was discussed.
[2017-11-25 20:00] VITALS: BP 116/77
--- NOTE | 2017-11-25 20:00 | NUR ---
CIWA ASSESSMENT: CIWA=12: Patient presented with anxiety, agitation, depression, nervousness, irritability, sweating, tremors, that can be felt, not observe, very moderate lightheaded, nasal congestion, restlessness and fatigue. Safe and calm environment with minimized noises was provided. All needs met. Safety measures in place: Call light within reach, bed is locked in lowest position, and padded bed rails up bilaterally.
[2017-11-25] MEDS: DESVENLAFAXINE 100 MG PO SCH (21:27)
--- NOTE | 2017-11-25 21:28 | NUR ---
PRN VISTARIL 50 MG PO ADMINISTRATION. Patient c/o increased anxiety, and asked aid. PRN Vistaril 50 mg PO administrated for anxiety at 2128 with full glass of water, as ordered. Patient tolerated well. Safe and calm environment with minimized noises was provided. All needs met. Safety measures: Call light within reach, bed locked in the lowest position, and padded rails up x2. Will continue to monitor closely.
--- NOTE | 2017-11-25 21:30 | NUR ---
PRN TORADOL 30 MG/1ML IM ADMINISTRATION Patient c/o severe low back pain "8", and asked aid. PRN Toradol 30 mg/1 ml IM administrated to Upper Right Dorsogluteal Site, as ordered. Patient tolerated well. All needs met. Safety measures on place. Call light within reach, bed locked in lowest position, and padded rails up bilaterally. Will continue to monitor closely.
[2017-11-25] MEDS: GABAPENTIN 400 MG CAPSULE PO SCH (21:49)
[2017-11-25] MEDS: TRAZODONE 100 MG TABLET PO SCH (21:49)
--- NOTE | 2017-11-25 22:00 | NUR ---
PRN TORADOL IM RE-ASSESSMENT PRN Toradol 30 mg/1 ml IM administrated for severe low back pain: "8" at 2130, was effective. The patient reports headache decreased from "8/10" to "4/10". Safe and calm environment with minimized noises was provided. All needs met. Safety measures on place. Call light within reach, bed locked in lowest position, padded rails up bilaterally. Will continue to monitor closely.
--- NOTE | 2017-11-25 22:28 | NUR ---
PRN VISTARIL PO RE-ASSESSMENT Patient is sleeping. RR 16. Respirations even and unlabored. PRN Vistaril 50 mg PO administrated for anxiety at 2128 was effective. Safe and calm environment with minimized noises was provided. All needs met. Safety measures in the place: Call light within reach, bed locked in the lowest position, and padded rails up x2. Will continue to monitor closely.
[2017-11-25] MEDS ORDERED: METH-406 PO (23:45)
[2017-11-26] VITALS: BP 99/61
--- NOTE | 2017-11-26 | NUR ---
CIWA ASSESSMENT: CIWA=11: Patient presented with anxiety, agitation, depression, nervousness, irritability, sweating, very mild lightheaded, tremors, that can be felt, not observe, nasal congestion, restlessness, and fatigue. Safe and calm environment with minimized noises was provided. All needs met. Safety measures in place: Call light within reach, bed is locked in lowest position, and padded bed rails up bilaterally.
[2017-11-26 04:00] VITALS: BP 105/62
--- NOTE | 2017-11-26 04:00 | NUR ---
CIWA ASSESSMENT: CIWA=10 at 0400: Patient presented with anxiety, agitation, depression, nervousness, irritability, sweating, tremors, that can be felt, not observe, nasal congestion, restlessness, and fatigue. Safe and calm environment with minimized noises was provided. All needs met. Safety measures:Call light within reach, bed in the lowest position and locked, padded rails up x2.
--- NOTE | 2017-11-26 07:19 | NUR ---
END OF SHIFT NOTE: The patient is a 32 year old female scheduled for discharging today. She is completed 5 day Ativan taper ordered for Alcohol (Wine and Beer) withdrawal. The patient tolerated well. Patient reports Allergy to moxifloxacin, is on Regular Diet, Full Code, is on Fall and Seizures Precautions. The patient denies history of withdrawal-induced seizures. The patient denies SI/HI. The patient is alert and oriented x4, cooperative, with steady gait, clear soft speech. Patient appears with anxious mood and flat affect. Emotional support and reassuring provided. Encouraged to expresses his feelings. Relaxation Techniques: deep breathing exercises, guided imagery, and visualization. 1. CIWA=12 at 2000: Patient c/o anxiety, agitation, depression, nervousness, irritability, sweating, tremors, that can be felt, not observe, very moderate lightheaded, nasal congestion, restlessness and fatigue. 2. CIWA=11 at 0000: Patient presented with anxiety, agitation, depression, nervousness, irritability, sweating, very mild lightheaded, tremors, that can be felt, not observe, nasal congestion, restlessness, and fatigue. 3. CIWA=10 at 0400: Patient presented with anxiety, agitation, depression, nervousness, irritability, sweating, tremors, that can be felt, not observe, nasal congestion, restlessness, and fatigue. PRN Vistaril 50 mg PO administrated for anxiety at 2127, PRN Toradol 30mg/1 ml IM administrated for low back pain "8/10" at 2130, and were effective. Patient remains compliant with treatment, medications, and diet regime. Safe and calm environment with minimized noises was provided. Patient slept 7 hours, intake 1,000 ml, voided x1. All needs met. Safety measures in the place by hospital policy: Call light within reach, bed in the lowest position and locked, padded rails up x2. Patient endorsed to day shift nurse.
--- NOTE | 2017-11-26 07:42 | NUR ---
BEGINNING OF SHIFT Patient is scheduled to be discharged this morning, received patient awake, alert and oriented x4, noted self motivated towards sobriety. Patient endorsement report received from night guard nurse, all pertinent information was discussed. Completed on 5 day Ativan taper as ordered, admitting Dx: etoh withdrawal. As per night guard patient slept for a total of 7 hours, received PRN: Toradol, and Vistaril. Patient with LAST CIWA score of: 12. Safety measures are in place. call light with in reach. Will continue to monitor.
[2017-11-26 08:02] VITALS: BP 118/71
[2017-11-26] MEDS: HYDROXYZINE PAMOATE 25 MG CAPSULE PO PRN (08:35)
[2017-11-26] MEDS: GABAPENTIN 300 MG CAPSULE PO SCH (08:35)
[2017-11-26] MEDS: FOLIC ACID 1 MG TABLET PO SCH (08:35)
[2017-11-26] MEDS: THIAMINE HCL 100 MG TABLET PO SCH (08:35)
[2017-11-26] MEDS: METHOCARBAMOL 750 MG TABLET PO PRN (08:35)
[2017-11-26] MEDS: MULTIVITAMINS,THERAPEUTIC TABLET PO SCH (08:35)
--- NOTE | 2017-11-26 10:07 | NUR ---
BEGINNING OF SHIFT Patient discharged off the unit at 1007, prior to discharged patient was provided with teaching and education regarding all discharge instructions with good verbal understanding. Patient noted self motivated towards sobriety. Patient with last CIWA score of: 6. Patients vital signs WNL. Prior to discharge was administered Robaxin, and Vistaril due to patient c/o myalgia 5/10 and increase anxiety. Medication was effective, one hour post administration, verbalized decrease in pain level from 5 to 2/10. and verbalized feeling less anxious and calm. Patient discharge instructions, home medications, and prescriptions were placed in patients personal duffel bag. Patient off the unit at 1007 in stable condition. Addendum: 11/26/17 at 1059 by VICTOR MANUEL CISNEROS LVN clarification: note above is DISCHARGE NOTE
== END 2017-11-26 10:07 | DRG 895 ==
LOC: SRC 12:12
PROVIDERS: ADMIT Family Medicine Addiction Medicine; ATTEND Family Medicine Addiction Medicine
PROC: HZ2ZZZZ Detoxification Services for Substance Abuse Treatment (ICD-10-PCS; principal; 2017-11-19)
PROC: HZ41ZZZ Group Counseling for Substance Abuse Treatment, Behavioral (ICD-10-PCS; 2017-11-21)
DX: F10.230 Alcohol dependence with withdrawal, uncomplicated (principal); Y90.7 Blood alcohol level of 200-239 mg/100 ml; Z81.8 Family history of other mental and behavioral disorders; G43.909 Migraine, unspecified, not intractable, without status migrainosus; F41.0 Panic disorder [episodic paroxysmal anxiety]; Z98.84 Bariatric surgery status; Z90.49 Acquired absence of other specified parts of digestive tract; F50.89 Other specified eating disorder; Z86.73 Personal history of transient ischemic attack (TIA), and cerebral infarction without residual deficits; D69.6 Thrombocytopenia, unspecified; E83.51 Hypocalcemia; F17.200 Nicotine dependence, unspecified, uncomplicated; F32.9 Major depressive disorder, single episode, unspecified
CPT/HCPCS: 36415; 70030-TC; 80307; 83735; 84703; 85025; 86592; 86705; 86803; 87340; 87806; G0480; J1885; J2405; J3411; Q0162; Q0163; Q0169

== ENCOUNTER 2017-12-27 15:07 | Inpatient (IN) | payer BC, OTHER ==
[~2017-12-27] VITALS: Ht 157.5 cm; Wt 68.0 kg
[~2017-12-27 15:07] MED LIST changes: +DESV100T PO; -GABA-534 PO; +GABA600T PO; +GABA600T2 PO; +METH-406 PO; +QUET100T PO; -TRAZ-214 PO; +TRAZ150T75 PO
[2017-12-27] MEDS ORDERED: ONDANSETRON HCL 4 MG TABLET PO PRN (16:15)
[2017-12-27] MEDS ORDERED: DICYCLOMINE HCL 20 MG TABLET PO PRN (16:15)
[2017-12-27] MEDS ORDERED: MIRALAX 17 GM POWD.PACK PO PRN (16:15)
[2017-12-27] MEDS ORDERED: diphenhydrAMINE 50 MG CAPSULE PO PRN (16:15)
[2017-12-27] MEDS ORDERED: LORAZEPAM 1 MG TABLET PO PRN (16:15)
[2017-12-27] MEDS ORDERED: LOPERAMIDE HCL 2 MG CAPSULE PO PRN ×2 (16:15)
[2017-12-27] MEDS ORDERED: MAG HYDROX/AL HYDROX/SIMETH 30 ML LIQUID UDC PO PRN (16:15)
[2017-12-27] MEDS ORDERED: MAGNESIUM HYDROXIDE 30 ML LIQUID UDC PO PRN (16:15)
[2017-12-27] MEDS ORDERED: LORAZEPAM 2 MG/1 ML VIAL IM PRN (16:15)
--- NOTE | 2017-12-27 16:15 | NUR ---
Preadmission Note: Pt seen in intake office. Pt was escorted by her mother. Pt appears disheveled. Pt is also emotionally labile during the intake process. Pt able to answer admission questions. Pt stated that she is currently here for drinking white wine. Pt was recently admitted to [facility] last month but relapsed after discharging from her previous facility. Policies and procedures explained to pt. Pt verbalized understanding. Will admit pt to unit.
[2017-12-27 16:30] VITALS: BP 138/88
--- NOTE | 2017-12-27 16:30 | NUR ---
Admission Note: Pt is a 32F, admitted to [facility] at 1630 for medically supervised ETOH withdrawal. Pt is flushed and mildly intoxicated from ETOH. Pt stated I just drank 5 hours ago. Pt currently not experiencing withdrawal symptoms. Unable to assess CIWA score. Pt is AOx4 and is able to answer assessment questions. Pt was accompanied by her mother during the intake assessment. Pt appears disheveled with stains in her clothing. Pt is very emotionally labile during the admission process, first laughing then crying hysterically when asked assessment questions. BP: 138/88, HR: 119, RR: 18, T:98.2, SpO2: 96%, Pain: 9/10 headache. Substance use: 2-3 bottle of white wine PO daily for the past 10 days. Pt has been drinking heavily when she got back home after her discharge from [place], [place]. Pt last drank 2 beers on 12/27/17 @ 1130. Pt was recently admitted to [facility] on 11/19/17. Pt stated I wanted to go to [place], [place] after detox because they could help me with my eating disorder. When asked about why she relapsed, pt stated [facility] was a very bad place. They took me out of the main facility and sent me to a small motel-like place called [facility]. Its still part of [facility] but it was really bad, I was only seen by the therapist one time while I was there and there was only two other people. It was very stressful but I managed to endure it for about 20 days. Pt stated she started drinking heavily after she got back. Pt stated she first started drinking heavily at the age of 22 only to help her sleep. It eventually became a problem and now she couldnt stop. When asked why she couldnt stop drinking, pt stated I got tired of trying to stop because I couldnt do it. I didnt care about stopping anymore after my unsuccessful attempts. Pt stated that she tried to get sober today because I didnt want to feel this way anymore. I feel sicker than ever. I would have kept drinking if it wasnt for my mom who stopped by today. Pts mother is currently her support system. Pt stated she just wanted to be better and wants to stop so she would look good for her mom. When prompted why pt relapses, pt stated I dont really have cravings but I just got depressed. Drinking helps me feel less depressed. Flor stopped multiple times but whenever I get down, that is what makes me relapse. Pt was unable to verbalize her barriers from sobriety. Pt stated It just feels like everytime I finally get better, it just gets worse for me. Im sick of it. Pt denies any current legal consequences from drinking. Pt did state 22 years ago I had a DUI but thats about it. Pt stated that her admission this time will be different because she didnt want to go through this again. Pt verbalized I want to stop drinking so my mom can stop seeing me like this and keep having to help me out. I want to be independent. Pt denies hx of of seizures, delirium, cardiac, overdose, blackouts. Pt did report having a hx of psychiatric hold in 2006. Pt did report that it was really stupid, I was in the ER and they heard me wrong. They misinterpreted it when I said I didnt want to feel this way anymore. They held me for 3 days and I got released. Pt denies any suicidal ideations at this time. Pulse regular. Respirations even and unlabored. Lung sounds clear bilaterally. Bowel sounds hypoactive x4 quadrants. Skin intact. Pt states she has migraine headaches, anxiety, PTSD, depression, panic disorder, eating disorder, and insomnia. Pt also has a hx of gall bladder removal in 2014, gastric sleeve in 2017, hx of right ankle fx and tail bone fx. Pt takes Pristiq for mood, Imitrex for migraine, Spironolactone for hormones, Vistaril for anxiety, and ProAir for shortness of breath. Pt stated that her primary care physician is Dr. Jae Stevens and her psychiatrist is Dr Kang Macedo. Pt smokes 10 cigarettes daily. Pt states shell try to quit smoking. Smoking cessation education provided. Bed in lowest position. Side rails up x2. Bed padded for safety. All needs attended and met. Call light functioning and within reach. Will continue to monitor.
[2017-12-27 17:02] LABS: *AMPHETAMINE, URINE NEGATIVE (NEGATIVE); *BARBITURATE, URINE NEGATIVE (NEGATIVE); *CANNABINOID, URINE NEGATIVE (NEGATIVE); *COCCAINE, URINE NEGATIVE (NEGATIVE); *OPIATE, URINE NEGATIVE (NEGATIVE); *PHENCYCLIDINE SCREEN,URINE NEGATIVE (NEGATIVE)
[2017-12-27 17:03] LABS: *URINE HCG, QUAL NEGATIVE (NEGATIVE)
[2017-12-27] MEDS ORDERED: THIAMINE HCL 200 MG/2 ML VIAL IM ONE (17:20)
[2017-12-27] MEDS: SUMATRIPTAN SUCCINATE 50 MG TABLET PO PRN (17:26)
--- NOTE | 2017-12-27 17:26 | NUR ---
Imitrex PRN: Pt stated that she was having severe migraine pain. 50mg Imitrex PRN given as ordered. Will continue to monitor.
[2017-12-27 17:58] LABS: BASOPHILS % (AUTO) 0.4 % (0.0-2.0); EOSINOPHILS % (AUTO) 0.4 % (0.0-7.0); HEMATOCRIT 45.1 % (31.2-41.9); HEMOGLOBIN 15.3 g/dL (10.9-14.3); LYMPHOCYTES # (AUTO) 3.1 K/uL (20.0-40.0); LYMPHOCYTES % (AUTO) 32.9 % (20.5-51.5); MEAN CORPUSCULAR HEMOGLOBIN 31.9 uug (24.7-32.8); MEAN CORPUSCULAR HGB CONC 34 g/dL (32.3-35.6); MEAN CORPUSCULAR VOLUME 94.1 fL (75.5-95.3); MONOCYTES # (AUTO) 0.4 K/uL (2.0-10.0); MONOCYTES % (AUTO) 4.5 % (0.0-11.0); NEUTROPHILS # (AUTO) 5.7 K/uL (1.8-8.9); NEUTROPHILS % (AUTO) 61.8 % (38.5-71.5); PLATELET COUNT (AUTO) 258 K/uL (179-408); RED BLOOD CELL COUNT(AUTO) 4.79 MIL/uL (3.63-4.92); WHITE BLOOD COUNT (AUTO) 9.3 K/uL (3.8-11.8)
[2017-12-27] MEDS: ONDANSETRON ODT 4 MG TAB.RAPDIS SL PRN (18:02)
--- NOTE | 2017-12-27 18:02 | NUR ---
Zofran PRN and Ativan PRN: Pt c/o vomiting. Pt also started c/o withdrawal symptoms. Pt noted with slight tremor, slight diaphoresis, mild anxiety and agitation. 4mg Zofran and 1mg Ativan PRN given as ordered. Will continue to monitor.
[2017-12-27 18:26] LABS: BILIRUBIN,TOTAL 0.4 mg/dL (0.2-1.0); CREATININE 0.6 mg/dL (0.6-1.3); MAGNESIUM 2.1 mg/dL (1.8-2.4); POTASSIUM 3.6 mmol/L (3.5-5.1); TOTAL PROTEIN, SERUM 7.5 g/dL (6.4-8.2)
--- NOTE | 2017-12-27 18:30 | NUR ---
Imitrex Reassessment: Pt stated relief from headache. Imitrex effective.
[2017-12-27 18:37] LABS: THYROID STIMULATING HORMONE 0.673 mIU/mL (0.358-3.740)
--- NOTE | 2017-12-27 19:30 | NUR ---
Start of Shift Pt admitted 12/27/17 for medically managed withdrawal/detox from ETOH. Pt is listed as a full code with allergy to Arelox and on a regular diet. Pt readmitted after November/ on 11/25/17. Pt has been drinking for past 10 days 2-3 bottles of wine daily, last reported CIWA 13 with BAL .27 and vomiting. Pt presents with flat affect, avoidant eye contact, soft voice, claims "I feel awful" with c/o H/A (not migraine), back ache, gross tremors, diaphoresis, anxiety and agitation, N/V with no recent emesis since last Zofran adm at 1802. Pt appears depressed/sad/worried. Full safety measures in place with bed locked and in lowest position, side rails up x 2, call castorena within reach and frequent rounding. Will continue to monitor and promptly attend to all s/sx's w/d or distress.
--- NOTE | 2017-12-27 19:31 | NUR ---
End of Shift Note: Report given to mortgage analyst nurse. Pt was admitted earlier today. Last CIWA was 13 at 1800. Pt c/o migraine headache. Imitrex PRN given as ordered. Pt also c/o vomiting and increased withdrawal symptoms. Zofran PRN and Ativan PRN given as ordered. Bed in lowest position. Side rails up x2. Call light functioning and within reach. All needs attended and met.
--- NOTE | 2017-12-27 19:32 | NUR ---
Zofran and Ativan Reassessment: Pt stated nausea improved. CIWA 9. Zofran and Ativan effective.
[2017-12-27] MEDS ORDERED: ALBU8.5H8 INH (19:40)
[2017-12-27] MEDS ORDERED: SPIR50TA5 PO (19:40)
[2017-12-27 20:00] VITALS: BP 119/77
[2017-12-27] MEDS ORDERED: CLONIDINE HCL 0.1 MG TABLET PO PRN (20:00)
[2017-12-27] MEDS ORDERED: IBUPROFEN 600 MG TABLET PO PRN (20:00)
[2017-12-27] MEDS ORDERED: SUMATRIPTAN SUCCINATE 50 MG TABLET PO PRN (20:00)
[2017-12-27] MEDS ORDERED: Medication Not On Formulary EA (Gabapentin 1 TAB) PO SCH (20:00)
[2017-12-27] MEDS ORDERED: GABAPENTIN PO SCH (20:00)
[2017-12-27] MEDS ORDERED: SPIRONOLACTONE 50 MG TABLET PO SCH (20:00)
[2017-12-27] MEDS ORDERED: ALBUTEROL SULFATE INH PRN (20:00)
--- NOTE | 2017-12-27 20:00 | NUR ---
Evening Rounds CIWA 17, aeb anxiety, agitation, diaphoresis, HR 98, anhedonia, fatigue/malaise, H/A, back ache, difficulty concentrating and sleeping, dydpepsia, generalized discomfort, tremors.
[2017-12-27] MEDS ORDERED: GABAPENTIN 300 MG CAPSULE PO PRN (20:45)
[2017-12-27] MEDS: TRAZODONE 100 MG TABLET PO SCH (20:50)
[2017-12-27] MEDS: LORAZEPAM 1 MG TABLET PO PRN (20:51)
[2017-12-27] MEDS: IBUPROFEN 600 MG TABLET PO PRN (20:51)
--- NOTE | 2017-12-27 20:51 | NUR ---
PRN Meds Motrin 600mg PO for H/A, Ativan 2mg PO for CIWA 17, Robaxin 750mg PO for back ache given. Will continue to monitor and reassess in 1 hour.
--- NOTE | 2017-12-27 21:51 | NUR ---
PRN Reassessment Motrin 600mg PO for H/A, Ativan 2mg PO for CIWA 17, Robaxin 750mg PO for back ache given 1 hour prior. Presently, pt is resting with eyes closed, RR 14, even and nonlabored. Meds effective
[2017-12-27] MEDS: GABAPENTIN 300 MG CAPSULE PO SCH (22:03)
[2017-12-28] VITALS: BP 105/75
--- NOTE | 2017-12-28 | NUR ---
Midnight Rounds VSS, CIWA deferred r/t pt somnalance. Will continue to monitor and promptly attend to all s/sx's w/d or distress.
[2017-12-28 04:00] VITALS: BP 123/77
--- NOTE | 2017-12-28 04:00 | NUR ---
0400 Rounds VSS, LANA deferred r/t pt somnalance. Will continue to monitor and promptly attend to all s/sx's w/d or distress.
--- NOTE | 2017-12-28 05:43 | NUR ---
CIWA 20, aeb anxiety, agitation, diaphoresis, HR 98, anhedonia, fatigue/malaise, H/A, back ache, difficulty concentrating and sleeping, dydpepsia, generalized discomfort, tremors.
[2017-12-28] MEDS: IBUPROFEN 600 MG TABLET PO PRN (05:44)
[2017-12-28] MEDS: ONDANSETRON ODT 4 MG TAB.RAPDIS SL PRN ×2 (05:44→17:55)
[2017-12-28] MEDS: LORAZEPAM 1 MG TABLET PO PRN (05:45)
--- NOTE | 2017-12-28 05:45 | NUR ---
PRN Meds Ativan 2mg PO for ETOH w/d, Zofran 4mg SL for nausea w/o emesis, and Motrin 600mg PO for H/A given. Will continue to monitor, reassessing in 1 hour
--- NOTE | 2017-12-28 06:45 | NUR ---
PRN Reassessment Ativan 2mg PO for ETOH w/d, Zofran 4mg SL for nausea w/o emesis, and Motrin 600mg PO for H/A given 1 hour prior. At present pt is resting with eyes closed, RR 16, even and nonlabored, no emesis present or reported. Meds effective.
--- NOTE | 2017-12-28 06:50 | NUR ---
End of Shift Pt admitted 12/27/17 for medically managed withdrawal/detox from ETOH. Pt is listed as a full code with allergy to Arelox and on a regular diet. Pt readmitted after November/ on 11/25/17. Pt has been drinking for past 10 days 2-3 bottles of wine daily, last CIWA 20 at 0543 hours, aeb anxiety, agitation, diaphoresis, HR 100, anhedonia, fatigue/malaise, H/A, back ache, difficulty concentrating and sleeping, frequent nocturnal awakenings, dyspepsia, generalized discomfort, tremors. Pt starting 3 day Ativan taper today, 12/28/17. Pt disheveled, pale, dark circles under eyes, flat affect, racing/loose thoughts, depression. PRN's for shift included 2x2mg Ativan PO, Robaxin, Motrin x 2, and Zofran 4mg SL. Pt slept for 8 hours, with 1710 mls intake and 4 voids. Spironolactone rescheduled for morning. Full safety measures in place with bed locked and in lowest position, side rails up x 2, call castorena within reach and frequent rounding. Will continue to monitor and promptly attend to all s/sx's w/d or distress.
[2017-12-28 08:00] VITALS: BP 120/73
--- NOTE | 2017-12-28 08:00 | NUR ---
Start of Shift Notes/CIWA Assessment: Received patient in her room. Patient appears disheveled, odorous, unkempt with uncombed hair and garbage noted around the room. She is noted with poor regards to hygiene and with sweats on brow. Encouraged to shower and maintain her personal hygiene and space. She states "I feel like my skin is crawling out of me, I feel nauseous and I have a splitting headache." She rates the headache to be 7 out of 10. CIWA 25. Denies S/I or H/I noted. No AV hallucinations noted. She is noted with paresthesia, and tingling sensation on her feet and fingertips. Patient is a 32 year old female admitted for ETOH withdrawal who will start her 3-day Ativan taper today. Per night report, patient received Motrin x2, Ativan 2 mg x2, Robaxin and Zofran. Slept for 4 hours. Last CIWA 20. Educated patient on her current plan of care for the day and her medication regimen. Encouraged oral fluid intake and encouraged group participation to learn new skills to prevent relapse. Will continue to monitor closely.
[2017-12-28] MEDS: GABAPENTIN 300 MG CAPSULE PO SCH ×3 (08:41→21:31)
[2017-12-28] MEDS: THIAMINE HCL 100 MG TABLET PO SCH (08:41)
[2017-12-28] MEDS: LORAZEPAM 1 MG TABLET PO SCH ×4 (08:41→21:31)
[2017-12-28] MEDS: PRISTIQ 100 MG PO SCH (08:41)
[2017-12-28] MEDS: MULTIVITAMINS,THERAPEUTIC TABLET PO SCH (08:41)
[2017-12-28] MEDS: SUMATRIPTAN SUCCINATE 50 MG TABLET PO PRN (08:41)
--- NOTE | 2017-12-28 08:41 | NUR ---
Imitrex 50 mg PO given: Patient noted with complain of 7 out of 10 migraine. Imitrex 50 mg PO given as ordered. Will monitor for effectiveness.
[2017-12-28] MEDS: SPIRONOLACTONE 50 MG TABLET PO SCH (08:42)
[2017-12-28] MEDS: FOLIC ACID 1 MG TABLET PO SCH (08:52)
[2017-12-28] MEDS ORDERED: 3 DAY TAPER OF LORAZEPAM -SERENITY PROTOCOL PO PRN (09:00)
[2017-12-28] MEDS ORDERED: TUBERCULIN,PURIF.PROT.DERIV. 5 TU/0.1 ML TEST ID ONE (09:00)
--- NOTE | 2017-12-28 09:41 | NUR ---
Re-assessment: Imitrex Patient verbalizes that her migraine headache is now 3 out of 10. PRN Imitrex was effective.
[2017-12-28 12:00] VITALS: BP 137/91
--- NOTE | 2017-12-28 12:19 | NUR ---
CIWA Assessment: CIWA 20, patient continues to present with gross tremors, intermittent perspiration, diaphoresis, numbness and tingling to fingertips and toes, feelings of skin crawling, facial flushing, nervousness, increased emotional amplitude, nausea, and sweaty palms. MD Long aware. Will continue to monitor and provide support. Will continue current meds as ordered.
[2017-12-28 16:00] VITALS: BP 134/88
--- NOTE | 2017-12-28 16:14 | NUR ---
CIWA Assessment: CIWA 16, patient continues to present with gross tremors, intermittent perspiration, facial flushing, sweaty palms, generalized discomfort, headache, numbness and tingling sensation on her fingertips and toes, feeling of skin crawling and nausea. Will medicate patient with Ativan 1 mg PO as scheduled. Support provided. Will continue to monitor.
[2017-12-28] MEDS: METHOCARBAMOL 750 MG TABLET PO PRN (17:55)
--- NOTE | 2017-12-28 17:55 | NUR ---
Clonidine/Robaxin/Zofran 4 mg ODT given: Patient noted with diaphoresis, pulse 98, blood pressure 137/89. Noted with gross tremors, muscle aches of 7/10 and nausea/vomiting x 1 emesis. Redirection provided but ineffective. Medicated patient with Clonidine 0.1mg/Robaxin and Zofran 4 mg ODT as ordered. Will monitor for effectiveness.
--- NOTE | 2017-12-28 18:55 | NUR ---
Re-assessment: Robaxin/Clonidine/Zofran Patient verbalizes relief from anxiety, sweating, nervousness and nausea. She verbalizes her pain level is now a 3/10, N/V ceased. PRN Robaxin, Zofran, and Clonidine was effective.
--- NOTE | 2017-12-28 19:02 | NUR ---
End of Shift Notes: Patient initiated her 3-day Ativan taper as ordered. No adverse reactions noted. VS monitored closely. No significant abnormalities noted. Withdrawal symptoms were closely monitored. Initial CIWA 25, patient presented with nausea, intermittent perspiration, tingling sensation to fingertips and toes, anxiety, agitation, gross tremors, diaphoresis, fatigue, malaise, and headache. Medicated patient with Imitirex at 0841 with help. At 1755, patient was noted with increased diaphoresis, nausea, vomiting x 1, increase in gross tremors and increased in anxiety and complains of 7/10 generalized muscle aches. Medicated patient with Robaxin, Zofran and Clonidine as ordered with help after 1 hour. Last CIWA 16. Patient verbalizes that Ativan has been effective in reducing her withdrawal symptoms. She was unable to participate in group. Appetite fair. All needs met and attended. Will continue to monitor closely.
--- NOTE | 2017-12-28 19:30 | NUR ---
START OF SHIFT REPORT Pt is a 32 y/o female admitted on 12/27/17 for ETOH withdrawal. Pt is on a 3 day Ativan taper, tolerating well. Upon rounds Pt was found laying in bed in her room. Pt presents with tremors, anxiety, agitation, flushed and clammy skin, nausea, body aches, stomach cramps. Pt is also withdrawn, isolative, fidgety, headaches, and restless. PRN Imitrex, Clonidine, Robaxin, and Zofran was administered during day shift. Last CIWA 16. Scheduled medications due. Safety measures in place. Call light within reach. Will continue to monitor.
[2017-12-28 20:00] VITALS: BP 122/89
--- NOTE | 2017-12-28 20:00 | NUR ---
CIWA 18 Pt presents with tremors, restless, anxiety, agitation, flushed and clammy skin, nausea, body aches, stomach cramps, withdrawn, isolative, fidgety, and headaches. Scheduled medications due. Safety measures in place. Call light within reach. Will continue to monitor.
[2017-12-28] MEDS: KETOROLAC TROMETHAMINE 30 MG INJ IM PRN (21:31)
[2017-12-28] MEDS: TRAZODONE 100 MG TABLET PO SCH (21:31)
--- NOTE | 2017-12-28 21:31 | NUR ---
PRN TORADOL IM ADMINISTRATION Pt complains of generalized body aches 12/17. PRN Toradol was administered IM to the left deltoid. Safety measures in place. Call light within reach. Will continue to monitor.
[2017-12-28] MEDS ORDERED: ONDANSETRON 4 MG/2 ML VIAL IM PRN (21:45)
--- NOTE | 2017-12-28 22:31 | NUR ---
PRN TORADOL REASSESSMENT Pt was given Toradol IM for generalized body aches 8/10. On reassessment pt stated her pain is now 6/10 and is tolerable now. medication noted effective. Safety measures in place. Call light within reach. Will continue to monitor.
--- NOTE | 2017-12-29 | NUR ---
CIWA DEFERRED V/S REFUSED Pt was found in bed with eyes closed. Pt refused V/S and CIWA assessment was unable to be carried out per order. Safety measures in place. Call light within reach. Will continue to monitor.
[2017-12-29 04:00] VITALS: BP 123/86
--- NOTE | 2017-12-29 04:00 | NUR ---
CIWA 9 Pt presets with fine tremors, flushed and clammy skin, generalized body aches and a mild headache. Safety measures in place. Call light within reach. Will continue to monitor.
[2017-12-29] MEDS: IBUPROFEN 600 MG TABLET PO PRN (04:13)
--- NOTE | 2017-12-29 04:13 | NUR ---
PRN MOTRIN ADMINISTRATION Pt complains of generalized body aches 6/10 and mild headache 4/10. Pt requested Motrin. Medication was administered. Safety measures in place. Call light within reach. Will continue to monitor.
--- NOTE | 2017-12-29 05:13 | NUR ---
PRN MOTRIN READMINISTRATION Pt complained of generalized body aches 6/10 and mild headache 4/10. On reassessment generalized body aches of 4/10 and mild headache of 2/10. Medication noted effective. Safety measures in place. Call light within reach. Will continue to monitor.
--- NOTE | 2017-12-29 07:01 | NUR ---
END OF SHIFT Pt is a 32 y/o female admitted on 12/27/17 for ETOH withdrawal. Pt will continue a 3 day Ativan taper, tolerating well. Pt presented with tremors, anxiety, agitation, flushed and clammy skin, nausea, body aches, stomach cramps. Pt is also withdrawn, isolative, fidgety, headaches, and restless. PRN Toradol IM and Motrin were administered. Last CIWA 9. Pt slept 5 hours. Intake 1,105 ml, voided 3, stool 0. Pt's needs have been met. Endorsed to day shift nurse.
[2017-12-29 08:00] VITALS: BP 144/100
[2017-12-29] MEDS ORDERED: CLONIDINE HCL 0.1 MG TABLET PO PRN (08:00)
--- NOTE | 2017-12-29 08:00 | NUR ---
Start of Shift Notes/CIWA Assessment: Received patient in her room. Awake, alert and oriented x 4. Denies S/I or H/I noted. No AV hallucinations noted. CIWA 19, patient presented with increased emotional amplitude, facial flushing, gross tremors, diaphoresis and complains of 8/10 headache and myalgia. She also complains of feeling tired and feeling of skin crawling all over her body. She states "It feels like my skin crawling out of me. I'm so anxious. Can I go smoke now, please?" She appears fearful and worried about the detox process. Reassurance was provided. Patient is a 32 year old female admitted for ETOH withdrawal who was placed on a 3-day Ativan taper as ordered. Per night report, patient was given Motrin and Toradol during the night, slept for a total of 5 hours. Last CIWA 9. Educated patient on her current plan of care for the day and her medication regimen. Encouraged oral fluid intake and encouraged group participation to learn new skills to prevent relapse.
[2017-12-29 08:06] LABS: HEPATITIS B SURFACE AG Negative (Negative)
[2017-12-29] MEDS: THIAMINE HCL 100 MG TABLET PO SCH (08:36)
[2017-12-29] MEDS: FOLIC ACID 1 MG TABLET PO SCH (08:36)
[2017-12-29] MEDS: METHOCARBAMOL 750 MG TABLET PO PRN ×2 (08:36→22:01)
[2017-12-29] MEDS: ACETAMINOPHEN 325 MG TABLET PO PRN (08:36)
[2017-12-29] MEDS: GABAPENTIN 300 MG CAPSULE PO SCH ×3 (08:36→22:00)
[2017-12-29] MEDS: LORAZEPAM 1 MG TABLET PO SCH ×3 (08:36→22:00)
[2017-12-29] MEDS: MULTIVITAMINS,THERAPEUTIC TABLET PO SCH (08:36)
--- NOTE | 2017-12-29 08:36 | NUR ---
Clonidine 0.1mg/Robaxin 750 mg/Tylenol 650mg PO given: Patient noted with BP 144/100, Pulse 114. She is anxious, agitated, complains of 8/10 generalized myalgia and migraine headache. Noted with diaphoresis and gross tremors. Medicated patient with Clonidine 0.1mg , Robaxin and Tylenol as ordered. Will monitor for effectiveness.
[2017-12-29] MEDS: SPIRONOLACTONE 50 MG TABLET PO SCH (08:37)
[2017-12-29] MEDS: PRISTIQ 100 MG PO SCH (08:37)
--- NOTE | 2017-12-29 09:36 | NUR ---
Re-assessment: Clonidine, Robaxin and Tylenol Patient verbalizes that she feels less anxious, however, she continues to complain of 5/10 migraine headache and generalized pain. Non-pharmacological interventions provided. Addendum: 12/29/17 at 1040 by ELIZABETH PAGE LVN her blood pressure at 1040 was 138/81, Pulse 98
[2017-12-29] MEDS: KETOROLAC TROMETHAMINE 30 MG INJ IM PRN ×2 (10:05→17:31)
--- NOTE | 2017-12-29 10:05 | NUR ---
Toradol 30 mg IM given: Patient continues to verbalize 8/10 generalized muscle aches and headache. Medicated patiaent with Toradol 30 mg IM as ordered. Will monitor for effectiveness.
--- NOTE | 2017-12-29 10:35 | NUR ---
Re-assessment: Toradol Patient verbalizes mild relief from migraine and generalized pain. She states her PL is now a 4/10. PRN Toradol was effective.
--- NOTE | 2017-12-29 11:30 | NUR ---
MD Communication: MD Mays in to see and examined the patient. Notified MD of patient's blood pressure and pulse readings. New order received for Inderal 20 mg PO TID PRN for elevated blood pressure. MD is unable to enter in orders at this time. Orders noted and carried out.
[2017-12-29 12:00] VITALS: BP 139/97
[2017-12-29] MEDS ORDERED: PROPRANOLOL HCL 20 MG TABLET PO PRN (12:15)
--- NOTE | 2017-12-29 12:21 | NUR ---
CIWA Assessment: CIWA 16, patient presented with gross tremors, anxiety, nervousness, headache, nausea, agitation, intermittent perspiration and facial flushing. Will medicate patient as currently ordered. Support provided. Oral fluids encouraged.
--- NOTE | 2017-12-29 13:12 | NUR ---
Therapist prompted client to attend group therapy sessions.
[2017-12-29] MEDS: TRIAMCINOLONE ACET 0.025% OINT 15 GM TUBE TOP PRN (14:02)
--- NOTE | 2017-12-29 14:02 | NUR ---
Inderal/Triamcinolone cream given: Patient's pulse 105, complains of anxiety and nervousness. She also requested for ointment for her face. Medicated patient with Inderal and Triamcinolone as ordered. Will monitor for effectiveness.
--- NOTE | 2017-12-29 15:02 | NUR ---
Re-assessment: Inderal/Triamcinolone Pulse 90. She states she feels less anxious and verbalizes less irritation from her face. PRN Inderal and Triamcinolone effective.
[2017-12-29 16:00] VITALS: BP 139/99
[2017-12-29] MEDS: SUMATRIPTAN SUCCINATE 50 MG TABLET PO PRN (16:30)
--- NOTE | 2017-12-29 16:30 | NUR ---
Imitrex 50 mg PO given: Patient was given Imitrex 50 mg PO as ordered for complains of migraine headache.
--- NOTE | 2017-12-29 16:38 | NUR ---
CIWA Assessment: CIWA 15, patient continues to present with gross tremors, intermittent perspiration, anxiety, agitation, feeling of skin crawling and headache. Will continue to monitor and medicate patient as needed and to continue current taper meds.
--- NOTE | 2017-12-29 17:30 | NUR ---
Re-assessment: Imitrex Patient continues to complain of migraine headache and rates it at 8/10.
[2017-12-29] MEDS: ONDANSETRON ODT 4 MG TAB.RAPDIS SL PRN (17:32)
--- NOTE | 2017-12-29 17:32 | NUR ---
Zofran 4mg ODT/Toradol 30 mg IM given: Patient continues to complain of 8/10 migraine headache and nausea. Medicated patient with Zofra 4 mg ODT and Toradol 30 mg IM as ordered. Will monitor for effectiveness.
--- NOTE | 2017-12-29 18:02 | NUR ---
Re-assessment: Toradol Patient verbalizes mild relief from migraine headache. PRN Toradol was effective. She rates her pain a 4 out of 10.
--- NOTE | 2017-12-29 18:32 | NUR ---
Re-assessment: Zofran patient verbalizes relief from nausea. PRN Zofran was effective.
--- NOTE | 2017-12-29 19:02 | NUR ---
End of Shift Notes: Patient continues to be on 3-day Ativan taper as ordered. No adverse reactions noted. VS monitored closely. Noted with episode of elevated blood pressure and pulse in AM due to anxiety and pain. MD aware. Orders obtained. Withdrawal symptoms were closely monitored. Initial CIWA 19, patient presented with myalgia, anxiety, agitation, restlessness, fatigue, malaise, migraine, gross tremors, intermittent perspiration, difficulty concentrating, anhedonia, and mild paresthesia. Medicated patient with Clonidine, Robaxin and Tylenol at 0836 and Toradol 30 mg IM at 1005 with help. Inderal and Triamcinolone PRN given at 1402 and Imitrex given at 1630 and Toradol, Zofran at 1732.Last CIWA 15. Patient verbalizes that Ativan has been effective in reducing her withdrawal symptoms. Able to participate in group and activities despite her withdrawal symptoms. Has behavior of asking for more medications. Redirection provided. Appetite fair. All needs met and attended. Will continue to monitor closely.
--- NOTE | 2017-12-29 19:14 | NUR ---
Start of shift note Received report from day shift nurse. Pt is a 32 yo female, A+Ox4, presenting to [facility] for medically supervised ETOH withdrawal. Pt noted with headache, anxiety, agitation, and restlessness. Pt has HX of Migraines, anxiety, PTSD, depression, panic disorder, eating disorder, insomnia, gall bladder removal, gastric sleeve, and tail bone FX which will be monitored during shift. Pt is on 3 day Ativan taper, tolerated well. Respirations even and unlabored. Will continue to monitor.
[2017-12-29 20:11] VITALS: BP 143/88
--- NOTE | 2017-12-29 20:11 | NUR ---
CIWA Assessment CIWA: 14. Pt noted with mild nausea, fine tremors, sweat on brow, anxiety, and agitation. Respirations even and unlabored. Will continue to monitor.
[2017-12-29] MEDS: TRAZODONE 100 MG TABLET PO SCH (22:00)
--- NOTE | 2017-12-29 22:01 | NUR ---
PRN Robaxin Pt c/o muscle spasms 12/17 and requested for PRN Robaxin. Medication given and tolerated well. Will reassess within 1 HR. Will continue to monitor.
--- NOTE | 2017-12-29 23:00 | NUR ---
PRN Robaxin Reassessment Medication effective. Pt expresses reduction of muscle spasms to 5/10. No s/s of ASE noted at this time. Respirations even and unlabored. Will continue to monitor.
--- NOTE | 2017-12-30 00:56 | NUR ---
V/S refused and CIWA Assessment deferred fro sleep. Respirations even and unlabored. Will continue to monitor.
--- NOTE | 2017-12-30 04:53 | NUR ---
V/S refused and CIWA Assessment deferred for sleep. Respirations even and unlabored. Will continue to monitor.
--- NOTE | 2017-12-30 07:00 | NUR ---
End of shift note Pt was continuously noted with migraine, anxiety, agitation, and restlessness. Pt remained in room for majority of shift except to get food from kitchen, to go smoke on smoking patio, and to interact with other patients in recreational room. Pt remained cooperative and compliant with all aspects of treatment. Pt was given PRN Robaxin @2200. Pt is on 3 day Ativan taper, tolerated well. Pt slept for a total of 9 HRS. Last CIWA: 14 @2010. Respirations even and unlabored. Will endorse to day shift nurse.
[2017-12-30] MEDS: SUMATRIPTAN SUCCINATE 50 MG TABLET PO PRN ×3 (07:41→20:01)
[2017-12-30] MEDS: KETOROLAC TROMETHAMINE 30 MG INJ IM PRN ×3 (07:41→20:06)
--- NOTE | 2017-12-30 07:41 | NUR ---
START OF SHIFT & PRN Toradol, Imitrex Rvcd endorse form ongoing nurse, client is in room, sitting cross legged and rocking back and forth, her voice is tremulous, she states, "I'm so anxious, I feel like I am crawling out of my skin, my whole body aches and I have a migraine because I have not been able to rest at all."Client presents with anxious, agitated mood, flat affect, flushed face, healing scabs on forehead, clammy skin, tremors, restless legs, and difficulty concentrating. Client reports nausea, stomach cramps, poor appetite, and fatigue. PRN Toradol 30mg IM for generalized aches 12/17, Imitrex 50mg PO for migraine. Encourage client to verbalize feelings and provided emotional support. Advice client to attend group therapy to learn skills to maintain sober. PRN Robaxin for muscle spasm. Client slept 9 hrs. Last CIWA 14 @ 2000. Seizure precautions. Bed in lowest/locked position, side rails x 2 up/padded. Call light within reach.
--- NOTE | 2017-12-30 08:11 | NUR ---
Reassess PRN Toradol 30mg IM, client reports slight relief from generalized aches 3/10, but tolerable.
[2017-12-30 08:27] VITALS: BP 128/83
--- NOTE | 2017-12-30 08:40 | NUR ---
Zero induration noted at L forearm PPD site
--- NOTE | 2017-12-30 08:41 | NUR ---
Reassess PRN Imitrex 50mg, client reports relief from migraine. Call light within reach.
[2017-12-30] MEDS: TRIAMCINOLONE ACET 0.025% OINT 15 GM TUBE TOP PRN (09:18)
[2017-12-30] MEDS: GABAPENTIN 300 MG CAPSULE PO SCH ×3 (09:18→23:01)
[2017-12-30] MEDS: SPIRONOLACTONE 50 MG TABLET PO SCH (09:18)
[2017-12-30] MEDS: PRISTIQ 100 MG PO SCH (09:18)
[2017-12-30] MEDS: THIAMINE HCL 100 MG TABLET PO SCH (09:18)
[2017-12-30] MEDS: LORAZEPAM 1 MG TABLET PO SCH ×2 (09:18→23:00)
[2017-12-30] MEDS: FOLIC ACID 1 MG TABLET PO SCH (09:18)
[2017-12-30] MEDS: MULTIVITAMINS,THERAPEUTIC TABLET PO SCH (09:18)
--- NOTE | 2017-12-30 09:18 | NUR ---
CIWA 18 Client appears disheveled, dark circles under eyes, she presents with tremors, teary eyes, nasal congestion, flushed face, anxiety, agitation, sweating, restlessness, anhedonia, difficulty concentrating, poor appetite, malaise and fatigue. Schedule Ativan 1mg PO administered. Encouraged client to attend group therapy to learn skills to maintain sober. Call light within reach.
--- NOTE | 2017-12-30 09:18 | NUR ---
PRN Triamcinolone 0.25% TOP to face for skin rash.
--- NOTE | 2017-12-30 10:18 | NUR ---
Reassess PRN Triamcinolone 0.25%, client reports slight relief from skin rash.
[2017-12-30 12:22] VITALS: BP 155/100
[2017-12-30] MEDS: CLONIDINE HCL 0.1 MG TABLET PO PRN (12:25)
[2017-12-30] MEDS: HYDROXYZINE PAMOATE 25 MG CAPSULE PO PRN (12:25)
[2017-12-30] MEDS: METHOCARBAMOL 750 MG TABLET PO PRN (12:28)
--- NOTE | 2017-12-30 13:55 | NUR ---
PRN Toradol 30mg IM for generalized aches 12/17, Imitrex 50mg PO for migraine
--- NOTE | 2017-12-30 14:25 | NUR ---
Reassess PRN Toradol 30mg IM, client reports slight relief from WADE 310, but tolerable.
--- NOTE | 2017-12-30 14:55 | NUR ---
Reassess PRN Imitrex 50mg, client reports relief from migraine. Call light within reach.
--- NOTE | 2017-12-30 16:27 | NUR ---
Therapist prompted client to attend twice daily group therapy sessions.
--- NOTE | 2017-12-30 16:45 | NUR ---
CIWA 15 Client presents with anxious, irritable mood, depressed, fearful, worried, suspicious, avoidant gaze, emotional volatility, nausea, poor appetite, and difficulty concentrating. She stated, "I am so depressed, this is how everything starts for me, I get depressed and then I start drinking." Demonstrated deep breathing techniques and encourage client to verbalized feeling of despair. Scheduled Gabapentin 600mg PO administered. Call light within reach.
[2017-12-30 16:58] VITALS: BP 113/83
--- NOTE | 2017-12-30 19:23 | NUR ---
END OF SHIFT Endorse client to incoming nurse, client is in room, a/o x 4.Client monitored closely during shift, continues on Ativan taper as ordered. During shift client presented with nausea, anxiety, agitation, poor appetite, stomach cramps, difficulty concentrating, avoidant gaze, and fatigue. PRN medications administered and noted per protocol. Client's with last CIWA 15 @ 1600. Adequate PO fluid intake 2430mL, void x 8. Consumes 50-75% of meals. Call light within reach.
--- NOTE | 2017-12-30 19:24 | NUR ---
Start of shift note Received report from day shift nurse. Pt is a 32 yo female, A+Ox4, presenting to [facility] for medically supervised ETOH withdrawal. Pt noted with migraine, anxiety, agitation, and restlessness. Pt has HX of migraines, anxiety, PTSD,depression, panic disorder, eating disorder, insomnia, gall bladder removal, gastric sleeve, right ankle FX, and tail bone FX which will be monitored during shift. Pt is on 3 day Ativan taper, tolerated well. Respirations even and unlabored. Will continue to monitor.
--- NOTE | 2017-12-30 20:06 | NUR ---
PRN Toradol and Imitrex 50mg Pt c/o migraine headache 12/17. PRN Toradol and Imitrex 50mg given and tolerated well. Will reassess within 1 HR. Will continue to monitor.
--- NOTE | 2017-12-30 20:10 | NUR ---
CIWA Assessment CIWA: 13. Pt noted with severe migraine headache, anxiety, agitation, sweat on brow, and fine tremors. Respirations even and unlabored. Will continue to monitor.
[2017-12-30 20:11] VITALS: BP 140/78
--- NOTE | 2017-12-30 21:00 | NUR ---
PRN Toradol and Imitrex 50mg Reassessment Medications effective. Pt expresses reduction of migraine headache to 4/10. No s/s of ASE noted at this time. Respirations even and unlabored. Will continue to monitor.
[2017-12-30] MEDS: TRAZODONE 100 MG TABLET PO SCH (23:00)
--- NOTE | 2017-12-31 00:58 | NUR ---
V/S refused and CIWA assessment deferred for sleep. Respirations even and unlabored. Will continue to monitor.
--- NOTE | 2017-12-31 04:49 | NUR ---
V/S refused and CIWA assessment deferred for sleep. Respirations even and unlabored. Will continue to monitor.
[2017-12-31] MEDS: SUMATRIPTAN SUCCINATE 50 MG TABLET PO PRN ×3 (05:51→22:46)
[2017-12-31] MEDS: METHOCARBAMOL 750 MG TABLET PO PRN ×2 (05:51→16:30)
[2017-12-31] MEDS: KETOROLAC TROMETHAMINE 30 MG INJ IM PRN ×3 (05:52→22:46)
--- NOTE | 2017-12-31 05:52 | NUR ---
PRN Toradol, Imitrex 50mg, and Robaxin Pt c/o migraine headache 12/17 and generalized muscle aches 12/17. PRN Toradol, Imitrex 50mg, and Robaxin given and tolerated well. Will reassess within 1 HR. Will continue to monitor.
--- NOTE | 2017-12-31 06:41 | NUR ---
PRN Toradol, Imitrex 50mg, and Robaxin Reassessment Pt expresses reduction of migraine headache to 4/10 and reduction of muscle aches to 5/10. No s/s of ASE noted at this time. Respirations even and unlabored. Will continue to monitor.
--- NOTE | 2017-12-31 07:00 | NUR ---
End of shift note Pt was continuously noted with migraine headache, anxiety, and agitation. Pt remained in room for majority of shift except to get food from kitchen, to go smoke on smoking patio, and to interact with other patients in recreational room. Pt was given Toradol and Imitrex @2006 and PRN Toradol, Imitrex, and Robaxin @0550. Pt is on 3 day Ativan taper, tolerated well. Pt slept for a total of 7 HRS. Last CIWA: 13 @2010. Respirations even and unlabored. Will endorse to day shift nurse.
--- NOTE | 2017-12-31 07:40 | NUR ---
START OF SHIFT Endorse rcvd from ongoing nurse, client is is room, sound asleep, easy to arouse, RR 16, [id number]. Last CIWA 8 @ 1999. PRN Toradol 30mg IM and Imitrex 50mg PO for WADE @ 2005, 550, Robaxin 750mg PO @ 0551. PRN Robaxin 750mg for muscle spasms. Client slept 7 hrs. Seizure precautions. Bed in lowest/locked position.Side rails x 2 up/padded. call light within reach.
[2017-12-31 08:50] VITALS: BP 114/76
[2017-12-31] MEDS: PRISTIQ 100 MG PO SCH (09:07)
[2017-12-31] MEDS: FOLIC ACID 1 MG TABLET PO SCH (09:07)
[2017-12-31] MEDS: THIAMINE HCL 100 MG TABLET PO SCH (09:07)
[2017-12-31] MEDS: SPIRONOLACTONE 50 MG TABLET PO SCH (09:07)
[2017-12-31] MEDS: GABAPENTIN 300 MG CAPSULE PO SCH ×3 (09:07→22:44)
[2017-12-31] MEDS: MULTIVITAMINS,THERAPEUTIC TABLET PO SCH (09:07)
[2017-12-31] MEDS: ACETAMINOPHEN 325 MG TABLET PO PRN (09:13)
[2017-12-31] MEDS: HYDROXYZINE PAMOATE 25 MG CAPSULE PO PRN (09:14)
[2017-12-31] MEDS: CLONIDINE HCL 0.1 MG TABLET PO PRN ×2 (09:14→16:30)
--- NOTE | 2017-12-31 09:14 | NUR ---
CIWA 10 Client presents with anxiety and feels like she can focus on anything, hyperalert and restless. Skin is warm and moist to touch. PRN Clonidine 0.1mg PO and Vistaril 590mg PO for anxiety, Tylenol 650mg PO for WADE 11/16. Will continue to monitor. Call light within reach.
--- NOTE | 2017-12-31 10:14 | NUR ---
Reassess PRN Clonidine 0.1mg, Vistaril 590mg, Tylenol 650mg client reports slight relief from anxiety and WADE 2/10, but she at least can function and is planning to attend group therapy.
[2017-12-31 13:27] VITALS: BP 120/80
--- NOTE | 2017-12-31 13:28 | NUR ---
CIWA 11 Client presents with anxiety, agitation, flat affect, nausea and headache migraine. will administer toradol and imitrex. Deep breathing techniques instituted and returned demonstration by client.
--- NOTE | 2017-12-31 13:45 | NUR ---
PRN Toradol 30mg IM, Imitrex 50mg PO for migraine WADE 12/17.
--- NOTE | 2017-12-31 14:15 | NUR ---
Reassess PRN Toradol 30mg, client reports a slight relief from migraine WADE 10/17.
--- NOTE | 2017-12-31 14:45 | NUR ---
Reassess PRN Imitrex 50mg PO for migraine WADE 2, but tolerable. Call light within reach.
[2017-12-31] MEDS ORDERED: TRAZ-214 PO (14:51)
[2017-12-31] MEDS ORDERED: IBUP-1955 PO (14:51)
[2017-12-31] MEDS ORDERED: FOLI1TAB16 PO (14:51)
[2017-12-31] MEDS ORDERED: SPIR50TA PO (14:51)
[2017-12-31] MEDS ORDERED: MULT-24 PO (14:51)
[2017-12-31] MEDS ORDERED: GABA-534 PO ×2 (14:51)
[2017-12-31] MEDS ORDERED: TRIA15OI10 TOP (14:51)
--- NOTE | 2017-12-31 16:30 | NUR ---
CIWA 10 Client is sitting in bed, unable to stay still, she reports high levels of anxiety and muscle spasms on lower back. PRN Clonidine 0.1mg PO for anxiety, Robaxin 750mg PO for muscle spasms on lower back. Will continue to monitor. Call light within reach.
[2017-12-31 16:38] VITALS: BP 131/91
--- NOTE | 2017-12-31 17:30 | NUR ---
Reassess PRN Clonidine 0.1mg, Robaxin 750mg, client reports feeling less anxious and a slight relief from muscle spasms on lower back.
--- NOTE | 2017-12-31 19:16 | NUR ---
END OF SHIFT Endorse client to incoming nurse, client is in room, a/o x 4. Client continues to present with anxiety, agitation, and nausea. Client completed 3 day Ativan taper. She is scheduled for discharge home tomorrow am. PRN medications administered and noted per protocol. Client's with last CIWA 10 @ 1600. Adequate PO fluid intake 4900mL, void x 8, stool x 1. Consumes 75% of meals. Call light within reach.
--- NOTE | 2017-12-31 19:17 | NUR ---
Start of shift note Received report from day shift nurse. Pt is a 32 yo female, A+Ox4, presenting to [facility] for medically supervised ETOH withdrawal. Pt noted with restlessness, migraine headache, anxiety, and agitation. Pt has HX of migraine headaches, anxiety, PTSD, depression, panic disorder, eating disorder, insomnia, gall bladder removal, gastric sleeve, right ankle FX, and tail bone FX which will be monitored during shift. Pt has completed 3 day Ativan taper, tolerated well, and is due for discharge tomorrow. Respirations even and unlabored. Will continue to monitor.
[2017-12-31 20:15] VITALS: BP 104/69
--- NOTE | 2017-12-31 20:15 | NUR ---
CIWA Assessment CIWA: 13. Pt noted with fine tremors, anxiety, agitation, itchiness, depression, and severe headache. Respirations even and unlabored. Will continue to monitor.
[2017-12-31] MEDS: TRAZODONE 100 MG TABLET PO SCH (22:45)
[2017-12-31] MEDS: TRIAMCINOLONE ACET 0.025% OINT 15 GM TUBE TOP PRN (22:46)
--- NOTE | 2017-12-31 22:46 | NUR ---
PRN Toradol, Imitrex, and Triaderm Pt c/o migraine headache 01/17 and requested for PRN Toradol and Imitrex. Pt also requested for Triaderm cream. Medications given and tolerated well. Will reassess within 1 HR. Will continue to monitor.
--- NOTE | 2017-12-31 23:44 | NUR ---
PRN Toradol, Imitrex, and Triaderm Reassessment Medications effective. Pt is resting well in bed. No s/s of ASE noted. Respirations even and unlabored. Will continue to monitor.
--- NOTE | 2018-01-01 00:57 | NUR ---
V/S refused and CIWA assessment deferred for sleep. Respirations even and unlabored. Will continue to monitor.
--- NOTE | 2018-01-01 04:51 | NUR ---
V/S refused and CIWA assessment deferred for sleep. Respirations even and unlabored. Will continue to monitor.
--- NOTE | 2018-01-01 06:55 | NUR ---
PRN VISTARIL ADMINISTRATION Pt reported feeling anxious and requested relief. Vistaril 50 MG PRN administered. Will endorse to day shift nurse to monitor effectiveness.
[2018-01-01] MEDS: HYDROXYZINE PAMOATE 25 MG CAPSULE PO PRN (06:56)
--- NOTE | 2018-01-01 07:00 | NUR ---
End of shift note Pt was continuously noted with migraine headache, anxiety, agitation, and restlessness. Pt remained in room for majority of shift except to get food from kitchen, to go smoke on smoking patio, and to interact with other patients in recreational room. Pt remained cooperative and compliant with all aspects of treatment. Pt was given PRN Toradol, Imitrex, and Triaderm @2246 and PRN Vistaril @0656. Pt has completed 3 day Ativan taper, tolerated well, and is due for discharge today. Pt slept for a total of 7 HRS. Last CIWA: 13 @2015. Respirations even and unlabored. Will endorse to day shift nurse.
--- NOTE | 2018-01-01 07:15 | NUR ---
Start of Shift Note Pt. is a 32 y/o female admitted for the medically managed withdrawal from ETOH. Pt. was placed on a 3 day Ativan taper which she completed 12/31/2017. Pt. is set to be discharged this morning to [facility]. Endorse from previous shift pt. presented with migraines, anxiety, agitation, and restlessness. Pt. able to make her needs be known and able to perform her ADLs without assistance. Endorse pt. compliant with treatment plan and medication regiment. PRN Toradol, Imitrex, Triaderm, and Vistaril given during previous shift to manage withdrawal symptoms. Pt.s last CIWA 13 at 1999. Received pt. in room. Pt. dressed and concerned with smoking at the moment. Pt. states Im okay, just want to go out for a smoke. Encouraged pt. to verbalize concerns and emotions. Safety measures in place. Will continue to monitor pt.s behavior for safety.
[2018-01-01 08:00] VITALS: BP 116/73
[2018-01-01] MEDS: METHOCARBAMOL 750 MG TABLET PO PRN (08:55)
[2018-01-01] MEDS: GABAPENTIN 300 MG CAPSULE PO SCH (08:55)
[2018-01-01] MEDS: FOLIC ACID 1 MG TABLET PO SCH (08:55)
[2018-01-01] MEDS: PRISTIQ 100 MG PO SCH (08:55)
[2018-01-01] MEDS: SPIRONOLACTONE 50 MG TABLET PO SCH (08:55)
[2018-01-01] MEDS: THIAMINE HCL 100 MG TABLET PO SCH (08:56)
[2018-01-01] MEDS: MULTIVITAMINS,THERAPEUTIC TABLET PO SCH (08:56)
--- NOTE | 2018-01-01 09:35 | NUR ---
Discharge Note Pt. A/O X 4 and in stable condition. Pt.'s V/S are WNL. Pt. denies SI, HI, VH, and AH. Pt. educated on discharge plan and verbalize understanding. Pt. signed all paper work. All discharge paper work has been placed in blue and black discharge bag along with home medications and personal belongings. Pt.'s last CIWA of 7 at 0800. Pt. escorted to the lobby at this time by staff and is set to be picked up by her mother. notified of pt's discharge.
== END 2018-01-01 09:35 | DRG 895 ==
LOC: SRC 15:37
PROVIDERS: ADMIT Family Medicine Addiction Medicine; ATTEND Family Medicine Addiction Medicine
PROC: HZ2ZZZZ Detoxification Services for Substance Abuse Treatment (ICD-10-PCS; principal; 2017-12-27)
PROC: HZ41ZZZ Group Counseling for Substance Abuse Treatment, Behavioral (ICD-10-PCS; 2017-12-28)
PROC: HZ31ZZZ Individual Counseling for Substance Abuse Treatment, Behavioral (ICD-10-PCS; 2017-12-29)
DX: F10.230 Alcohol dependence with withdrawal, uncomplicated (principal); Y90.8 Blood alcohol level of 240 mg/100 ml or more; G43.909 Migraine, unspecified, not intractable, without status migrainosus; D69.6 Thrombocytopenia, unspecified; Z86.73 Personal history of transient ischemic attack (TIA), and cerebral infarction without residual deficits; F50.81 Binge eating disorder; L29.9 Pruritus, unspecified; F41.0 Panic disorder [episodic paroxysmal anxiety]; E11.9 Type 2 diabetes mellitus without complications; I10 Essential (primary) hypertension; G89.29 Other chronic pain; M54.9 Dorsalgia, unspecified; G47.00 Insomnia, unspecified; R21 Rash and other nonspecific skin eruption; F32.9 Major depressive disorder, single episode, unspecified
CPT/HCPCS: 36415; 70030-TC; 80307; 83690; 83735; 84443; 84703; 85025; 86580; 86592; 86705; 86803; 87340; 87806; A4663; G0480; J1885; J3411; J3535; Q0162

== ENCOUNTER 2018-05-25 14:08 | Emergency (ER) | payer BC, OTHER ==
[~2018-05-25] VITALS: Ht 157.5 cm; Wt 68.0 kg
[~2018-05-25 14:08] MED LIST changes: +ALBU8.5H8 INH; +FOLI1TAB16 PO; +GABA-534 PO; -GABA600T PO; +GABA600T12 PO; -GABA600T2 PO; +MULT-24 PO; -QUET100T PO; +SPIR50TA PO; +SPIR50TA5 PO; +TRAZ-214 PO; +TRIA15OI10 TOP
--- NOTE | 2018-05-25 14:30 | NUR ---
PATIENT IS AWAKE AND ALERT IN NO DISTRESS. MOTHER AT BEDSIDE.
[2018-05-25 15:25] LABS: BASOPHILS # (AUTO) 0.1 K/uL (0.0-8.0); BASOPHILS % (AUTO) 1.4 % (0.0-2.0); EOSINOPHILS % (AUTO) 0.5 % (0.0-7.0); HEMATOCRIT 43.1 % (31.2-41.9); HEMOGLOBIN 14.9 g/dL (10.9-14.3); LYMPHOCYTES # (AUTO) 1.8 K/uL (20.0-40.0); LYMPHOCYTES % (AUTO) 26.1 % (20.5-51.5); MEAN CORPUSCULAR HEMOGLOBIN 34.2 uug (24.7-32.8); MEAN CORPUSCULAR HGB CONC 35 g/dL (32.3-35.6); MEAN CORPUSCULAR VOLUME 98.7 fL (75.5-95.3); MONOCYTES # (AUTO) 0.7 K/uL (2.0-10.0); MONOCYTES % (AUTO) 10.6 % (0.0-11.0); NEUTROPHILS # (AUTO) 4.3 K/uL (1.8-8.9); NEUTROPHILS % (AUTO) 61.4 % (38.5-71.5); PLATELET COUNT (AUTO) 289 K/uL (179-408); RED BLOOD CELL COUNT(AUTO) 4.37 MIL/uL (3.63-4.92)
[2018-05-25 15:41] LABS: ALANINE AMINOTRANSFERASE 44 U/L (14-59); ALKALINE PHOSPHATASE 65 U/L (50-136); ASPARTATE AMINOTRANSFERASE 109 U/L (15-37); BILIRUBIN,DIRECT 0.1 mg/dL (0.0-0.2); BILIRUBIN,TOTAL 0.3 mg/dL (0.2-1.0); CARBON DIOXIDE 26 mmol/L (21-32); CHLORIDE 102 mmol/L (98-107); CREATININE 0.7 mg/dL (0.6-1.3); GLUCOSE 88 mg/dL (74-106); POTASSIUM 3.9 mmol/L (3.5-5.1); TOTAL PROTEIN, SERUM 8.1 g/dL (6.4-8.2); UREA NITROGEN, BLOOD 8 mg/dL (7-18)
[2018-05-25 15:44] LABS: ACETAMINOPHEN < 10.0 ug/mL (10-30)
[2018-05-25 15:52] LABS: ETHANOL 334 MG/DL (0-0)
--- NOTE | 2018-05-25 16:19 | NUR ---
PATIENT DISCHAGRED FROM ER. SHE WAS ESCORTED TO [facility] BY [facility] STAFF.
[2018-05-25 16:21] VITALS: BP 122/69
[2018-05-31] MEDS ORDERED: CLON0.1T14 PO (14:13)
[2018-05-31] MEDS ORDERED: SPIR50TA5 PO (14:13)
[2018-05-31] MEDS ORDERED: GABA-534 PO ×2 (14:13)
[2018-05-31] MEDS ORDERED: SUMA50TA PO (14:13)
== END 2018-05-25 16:22 | disposition home or self-care (01) ==
LOC: ER 14:08
DX: F10.10 Alcohol abuse, uncomplicated (principal); E11.9 Type 2 diabetes mellitus without complications; I10 Essential (primary) hypertension; Z88.1 Allergy status to other antibiotic agents; Z79.1 Long term (current) use of non-steroidal anti-inflammatories (NSAID); Z79.899 Other long term (current) drug therapy; Z79.891 Long term (current) use of opiate analgesic
CPT/HCPCS: 36415; 80048; 80076; 84484; 85025; 86592; 93005; 99284; G0480 ×2; G0481; 70030-TC; A4663

== ENCOUNTER 2018-05-25 16:35 | Inpatient (IN) | payer BC, OTHER ==
[~2018-05-25] VITALS: Ht 157.5 cm; Wt 68.0 kg
--- NOTE | 2018-05-25 16:45 | NUR ---
Preadmission Note: Pt seen in intake office. Pt was escorted by her mother. Pt appears disheveled. Pt is also emotionally labile during the intake process. Pt able to answer admission questions. Pt stated that she is currently here for drinking white wine. Pt was recently admitted to [facility] in december 2017 but relapsed after discharging from her previous facility. Policies and procedures explained to pt. Pt verbalized understanding. Will admit pt to unit.
[2018-05-25] MEDS ORDERED: ONDANSETRON 4 MG/2 ML VIAL IM PRN (17:00)
[2018-05-25] MEDS ORDERED: THIAMINE HCL 100 MG TABLET PO SCH (17:00)
[2018-05-25] MEDS ORDERED: THIAMINE HCL 200 MG/2 ML VIAL IM ONE (17:00)
[2018-05-25] MEDS ORDERED: MIRALAX 17 GM POWD.PACK PO PRN (17:00)
[2018-05-25] MEDS ORDERED: MAGNESIUM HYDROXIDE 30 ML LIQUID UDC PO PRN (17:00)
[2018-05-25] MEDS ORDERED: diphenhydrAMINE 50 MG CAPSULE PO PRN (17:00)
[2018-05-25] MEDS ORDERED: LORAZEPAM 2 MG/1 ML VIAL IM PRN (17:00)
[2018-05-25] MEDS ORDERED: LOPERAMIDE HCL 2 MG CAPSULE PO PRN ×2 (17:00)
[2018-05-25] MEDS ORDERED: LORAZEPAM 0.5 MG TABLET PO PRN (17:00)
[2018-05-25] MEDS ORDERED: MAG HYDROX/AL HYDROX/SIMETH 30 ML LIQUID UDC PO PRN (17:00)
--- NOTE | 2018-05-25 17:00 | NUR ---
Admission Note: Pt is a 32F, admitted to [facility] at 1645 for medically supervised ETOH withdrawal. Pt is flushed and moderately intoxicated from ETOH. Pt stated I just drank a few hours ago. Pt currently not experiencing withdrawal symptoms. Unable to assess CIWA score. Pt is AOx4 and is able to answer assessment questions. Pt was accompanied by her mother during the intake assessment. Pt appears disheveled with stains in her clothing. Pt is very emotionally labile during the admission process, first laughing then crying hysterically when asked assessment questions. BP: 145/82, HR: 95, RR: 18, T:98.0, SpO2: 99%, Pain: 7/10 headache. Substance use: 1 to 1.5 bottles of white wine PO daily for the past 3 weeks. Pt has been drinking heavily when she relapsed 3 weeks ago, drinking a bottle of wine daily. Pt was recently admitted to [facility] in December of 2017. Pt stated she first started drinking heavily at the age of 21 only to help her sleep. It eventually became a problem and then she couldnt stop. When asked why she couldnt stop drinking, pt stated I got tired of trying to stop because I couldnt do it. I didnt care about stopping anymore after my unsuccessful attempts. Pt stated that she tried to get sober today because I didnt want to feel this way anymore. I feel sicker than ever. I would have kept drinking if it wasnt for my mom who stopped by today. Pts mother is currently her support system. Pt stated she just wanted to be better and wants to stop so she would look good for her mom. When prompted why pt relapses, pt stated I dont really have cravings but I just got depressed. Drinking helps me feel less depressed. Flor stopped multiple times but whenever I get down, that is what makes me relapse. Pt was unable to verbalize her barriers from sobriety. Pt stated It just feels like every time I finally get better, it just gets worse for me. Im sick of it. Pt denies any current legal consequences from drinking. Pt did state 22 years ago I had a DUI but thats about it. Pt stated that her admission this time will be different because she didnt want to go through this again. Pt verbalized I want to stop drinking so my mom can stop seeing me like this and keep having to help me out. I want to be independent. Pt denies hx of of seizures, delirium, cardiac, overdose, blackouts. Pt did report having a hx of psychiatric hold in 2006. Pt did report that it was really stupid, I was in the ER and they heard me wrong. They misinterpreted it when I said I didnt want to feel this way anymore. They held me for 3 days and I got released. Pt denies any suicidal ideations at this time. Pulse regular. Respirations even and unlabored. Lung sounds clear bilaterally. Bowel sounds hypoactive x4 quadrants. Skin intact. Pt states she has migraine headaches, anxiety, PTSD, depression, panic disorder, eating disorder, and insomnia. Pt also has a hx of gall bladder removal in 2014, gastric sleeve in 2017, hx of right ankle fx and tail bone fx. Pt takes Pristiq for mood, Imitrex for migraine, Spironolactone for hormones, Vistaril for anxiety, and ProAir for shortness of breath. Pt stated that her primary care physician is Dr. Jae Stevens and her psychiatrist is Dr Kang Macedo. Pt smokes 10 cigarettes daily. Pt states shell try to quit smoking. Smoking cessation education provided. Bed in lowest position. Side rails up x2. Bed padded for safety. All needs attended and met. Call light functioning and within reach. Will continue to monitor.
[2018-05-25 17:13] LABS: BASOPHILS # (AUTO) 0.1 K/uL (0.0-8.0); BASOPHILS % (AUTO) 1.2 % (0.0-2.0); EOSINOPHILS # (AUTO) 0.1 K/uL (0.0-0.7); EOSINOPHILS % (AUTO) 0.6 % (0.0-7.0); HEMATOCRIT 43.8 % (31.2-41.9); HEMOGLOBIN 15.4 g/dL (10.9-14.3); LYMPHOCYTES # (AUTO) 2.6 K/uL (20.0-40.0); LYMPHOCYTES % (AUTO) 31.2 % (20.5-51.5); MEAN CORPUSCULAR HEMOGLOBIN 34.5 uug (24.7-32.8); MEAN CORPUSCULAR HGB CONC 35 g/dL (32.3-35.6); MONOCYTES # (AUTO) 0.7 K/uL (2.0-10.0); NEUTROPHILS # (AUTO) 4.8 K/uL (1.8-8.9); PLATELET COUNT (AUTO) 325 K/uL (179-408); RED BLOOD CELL COUNT(AUTO) 4.47 MIL/uL (3.63-4.92); WHITE BLOOD COUNT (AUTO) 8.3 K/uL (3.8-11.8)
[2018-05-25 17:23] LABS: *URINE HCG, QUAL NEGATIVE (NEGATIVE)
[2018-05-25 17:25] LABS: BILIRUBIN,TOTAL 0.3 mg/dL (0.2-1.0); CREATININE 0.7 mg/dL (0.6-1.3); MAGNESIUM 2.3 mg/dL (1.8-2.4); POTASSIUM 4.2 mmol/L (3.5-5.1); TOTAL PROTEIN, SERUM 8.5 g/dL (6.4-8.2)
[2018-05-25 17:49] LABS: *AMPHETAMINE, URINE NEGATIVE (NEGATIVE); *BARBITURATE, URINE NEGATIVE (NEGATIVE); *CANNABINOID, URINE NEGATIVE (NEGATIVE); *COCCAINE, URINE NEGATIVE (NEGATIVE); *OPIATE, URINE NEGATIVE (NEGATIVE); *PHENCYCLIDINE SCREEN,URINE NEGATIVE (NEGATIVE)
[2018-05-25 18:05] LABS: THYROID STIMULATING HORMONE 0.508 mIU/mL (0.358-3.740)
--- NOTE | 2018-05-25 19:05 | NUR ---
Start of Shift Received 32 year old female patient admitted to [facility] 05/25/18 for medically supervised withdrawal from ETOH. Pt not currently on a taper, but has PRN medications available. A 3 day Ativan taper to start in am 05/26/17. No PRN medications were given on day shift. Last CIWA deferred r/t intoxication. Pt resting in bed with eyes closed. Respirations are even and unlabored. Bed is low, side rails up x 2, and call castorena in reach. Will continue to monitor.
--- NOTE | 2018-05-25 19:47 | NUR ---
CIWA 22/ PRN Ativan 2 mg Pt awakened with severe tremors, anxiety, agitation, and diaphoretic. CIWA 22 and Ativan 2 mg given per order. Will monitor effect.
[2018-05-25] MEDS: IBUPROFEN 600 MG TABLET PO PRN (19:52)
[2018-05-25] MEDS: LORAZEPAM 0.5 MG TABLET PO PRN ×2 (19:53→22:49)
[2018-05-25 20:00] VITALS: BP 144/91
--- NOTE | 2018-05-25 20:47 | NUR ---
Reassess PRN Ativan Medication effective. Pt resting with eyes closed. Respirations are even and unlabored. Bed low, side rails up x 2, and call castorena in reach. Will continue to monitor.
[2018-05-25 22:49] VITALS: BP 138/92
--- NOTE | 2018-05-25 22:49 | NUR ---
CIWA 21/ PRN Ativan 2 mg Pt awakened with severe tremors, anxiety, agitation, and diaphoretic. CIWA 21 and Ativan 2 mg given per order. Will monitor effect.
--- NOTE | 2018-05-26 | NUR ---
CIWA deferred/ Vitals refused. Pt resting with eyes closed. Respirations are even and unlabored. Bed low, side rails up x 2, and call castorena in reach. Will continue to monitor.
[2018-05-26] MEDS: ONDANSETRON ODT 4 MG TAB.RAPDIS SL PRN ×2 (00:54→18:48)
--- NOTE | 2018-05-26 00:54 | NUR ---
PRN Zofran/Clonidine/Vistaril/Motrin/Benadryl Pt awoke c/o continued anxiety, restless, pressure/stuffiness in head with pain 8/10, and asked for something to sleep. Medications given per order. Will monitor effect.
[2018-05-26] MEDS: IBUPROFEN 600 MG TABLET PO PRN ×3 (00:55→21:46)
[2018-05-26] MEDS: HYDROXYZINE PAMOATE 25 MG CAPSULE PO PRN ×3 (00:55→21:46)
[2018-05-26] MEDS: CLONIDINE HCL 0.1 MG TABLET PO PRN ×3 (00:55→18:48)
--- NOTE | 2018-05-26 01:54 | NUR ---
Reassess PRN Zofran/Clonidine/Vistaril/Motrin/Benadryl Medication effective. Pt resting with eyes closed. Respirations are even and unlabored. Continue to monitor.
[2018-05-26] MEDS: LORAZEPAM 0.5 MG TABLET PO PRN (03:28)
--- NOTE | 2018-05-26 03:28 | NUR ---
CIWA 17/Ativan 2 mg Pt awakened with continued anxiety, agitation, sweats with chills, visual disturbances, and palpitations. Medication given per order. Will monitor effect.
[2018-05-26 04:00] VITALS: BP 136/92
--- NOTE | 2018-05-26 06:42 | NUR ---
End of Shift Endorsing 32 year old female patient admitted to [facility] 05/25/18 for medically supervised withdrawal from ETOH. Pt to begin a 3 day Ativan taper this am 05/26/18. 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 Last CIWA 22 @0100. Pt awake quietly sitting in bed watching TV. Respirations are even and unlabored. Bed is low, side rails up x 2, and call castorena in reach. PO intake 855 ml, voided x 2, BM x 0, and slept 7 hours.
--- NOTE | 2018-05-26 07:30 | NUR ---
START OF SHIFT Received report from night nurse, 32 year female admitted for ETOH Withdrawal. Patient continues on 3 days Ativan taper tolerating well. Per endorsement patient received PRN Zofran, Benadryl,Motrin, clonidine, Vistaril, Ativan x3 doses, slept for 7 hours, last CIWA-17. Patient alert awake oriented x4, anxious, agitated, fatigue, restlessness, diaphoretic, bilateral hand tremors. Patient is due for schedule medications. Educated patient on current plan of the day and medications regimen. Patient verbalized understanding.
[2018-05-26 08:00] VITALS: BP 149/87
[2018-05-26] MEDS: FOLIC ACID 1 MG TABLET PO SCH (08:47)
[2018-05-26] MEDS: MULTIVITAMINS,THERAPEUTIC TABLET PO SCH (08:47)
[2018-05-26] MEDS: THIAMINE HCL 100 MG TABLET PO SCH (08:48)
[2018-05-26] MEDS ORDERED: TUBERCULIN,PURIF.PROT.DERIV. 5 TU/0.1 ML TEST ID ONE (09:00)
[2018-05-26] MEDS ORDERED: 3 DAY TAPER OF LORAZEPAM -SERENITY PROTOCOL PO PRN (09:00)
[2018-05-26] MEDS ORDERED: LORAZEPAM 0.5 MG TABLET PO SCH (09:00)
--- NOTE | 2018-05-26 11:14 | NUR ---
PRN MEDICATIONS Patient c/o anxiety, body aches, blood pressure noted 151/104, HR-115. Patient was given PRN Clonidine, Motrin, Vistaril as ordered. Will cont to monitor and reassess for effectiveness. All safety measures in place. Addendum: 05/26/18 at 1924 by JUAN LUIS ANDERSON LVN patient reported body aches 10/17.
[2018-05-26 12:00] VITALS: BP 148/96
--- NOTE | 2018-05-26 12:14 | NUR ---
PRN REASSESSMENT Blood pressure 145/95 clonidine was effective, per patient Vistaril was effective in alleviating anxiety, and Motrin was effective in lower body aches 2/10.
[2018-05-26] MEDS: buPROPion XL 150 MG TAB.SR.24H PO SCH (12:24)
--- NOTE | 2018-05-26 13:49 | NUR ---
Therapist prompted client to attend group therapy sessions.
[2018-05-26] MEDS ORDERED: 5 DAY TAPER OF LORAZEPAM -SERENITY PROTOCOL PO PRN (14:15)
[2018-05-26] MEDS: GABAPENTIN 300 MG CAPSULE PO SCH ×2 (14:28→21:59)
[2018-05-26] MEDS: LORAZEPAM 0.5 MG TABLET PO SCH ×2 (15:11→21:46)
[2018-05-26] MEDS: MICONAZOLE NITRATE CREAM 15 GM TUBE TOP SCH ×2 (15:23→21:48)
[2018-05-26 16:00] VITALS: BP 129/86
--- NOTE | 2018-05-26 18:54 | NUR ---
PRN Clonidine and Zofran Pt reports nausea, anxiety, and restlessness. PRN Clonidine and Zofran administered.
--- NOTE | 2018-05-26 19:12 | NUR ---
END OF SHIFT Gave report to night nurse, 32 year old female admitted for ETOH withdrawal and continues on Ativan taper tolerating well. Patient presented with flat facial expression, Nausea, sweats, anxiety,agitation, restlessness, fatigue, uncombed hair. Patient was given her schedule medications and PRN Clonidine and Vistaril noted to be effective. Patient encouraged to self groom and maintain personal area. Encourage PO fluids as tolerated. Skin intact warm and dry to touch. Vital Signs WNL. Patient denies any SI/HI. All safety measures in place. Last CIWA score was 14 at 1600. Patient endorse to night nurse in stable condition. Patient received Clonidine and Zofran at 1854 endorse to night nurse to reassess for effectiveness.
--- NOTE | 2018-05-26 19:30 | NUR ---
Start of shift note Patient is a 32 year old female admitted on 05/25/18 for medically supervised ETOH withdrawal. Patient is on fall and seizure precautions. Pts last CIWA was 14. Pt is on a 5 day Ativan taper started on 05/26/18. Per endorsement pt had PRN Clonidine, Vistaril, Motrin and Zofran during day shift. Pt continues to present with anxiety, tremors, hot and cold flashes and sweats. Upon rounds pt was noted to be in bed watching tv, explained plan of care and she verbalized understanding. Safety measures in place, bed locked in low position, side rails up x2, and call light within reach. Will continue to monitor.
--- NOTE | 2018-05-26 19:54 | NUR ---
PRN Clonidine and Zofran Reassessment Pt is resting in bed watching tv, she reports medication was effective and nausea has subside with no emesis present. Safety measures in place and will continue to monitor.
[2018-05-26 20:00] VITALS: BP 123/94
--- NOTE | 2018-05-26 21:48 | NUR ---
PRN Vistaril and Motrin pt is reporting with anxiety and bodyaches. Administered PRN Vistaril and Motrin, pt tolerated well and will continue to monitor. Pt is breathing even and unlabored with no s/s of distress.
[2018-05-26] MEDS: TRAZODONE 100 MG TABLET PO SCH (21:59)
--- NOTE | 2018-05-26 22:20 | NUR ---
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 Pt was immediately assisted into a wheelchair, no evident signs of injury or trauma. Pt denied any physical trauma and stated "I am okay." V/S were stable and no signs of distress were noted. VS 105/64, P74, SpO2 96% on RA. MD was notified. Pt stated she was fatigued because she had slept all day and had nothing to eat or drink all day. Provided patient with food and fluids. Pt was placed on a 1:1 for safety.
--- NOTE | 2018-05-26 22:48 | NUR ---
PRN Vistaril and Motrin Reassessment Pt is in bed resting with eyes closed, breathing even and unlabored. medication noted to be effective. Safety measures in place, will continue to monitor.
[2018-05-27 05:06] LABS: HEPATITIS B SURFACE AG Negative (Negative)
--- NOTE | 2018-05-27 07:07 | NUR ---
End of shift note Patient is a 32 year old female admitted on 05/25/18 for medically supervised ETOH withdrawal. Patient is on fall and seizure precautions. Pts last CIWA was 12. Pt is on a 5 day Ativan taper started on 05/26/18. Pt continues to present with anxiety, tremors, hot and cold flashes and sweats. Patient had PRN Vistaril and Motrin during this shift. Pt had an episode of syncope during this shift, pt stated she was okay; was notified and pt was placed on a 1:1 for safety. V/S are stable and pt did not have any s/s of distress. Pt slept for 8 hours and had a total of 1,105 ml. Pt voided x 5 and had no bowel movements during this shift. Safety measures in place, bed locked in low position, side rails up x2, and call light within reach. Will endorse to day shift.
--- NOTE | 2018-05-27 07:30 | NUR ---
Start of shift note; Received report from night nurse. Patient is a 32 year old female admitted on 05/25/18 for ETOH withdrawal. Patient is AOX4, presented with anxiety, stomach cramps, intermittent sweats, chills, fatigue, loss of appetite. Patient was placed on a 5 day Ativan taper . Patient remains on 1:1 supervision for safety. Educated patient regarding the importance of compliance to treatment and medication regime. All safety measures secured. Will continue to monitor patient.
[2018-05-27 08:00] VITALS: BP 127/80
[2018-05-27] MEDS: THIAMINE HCL 100 MG TABLET PO SCH (09:00)
[2018-05-27] MEDS ORDERED: LORAZEPAM 0.5 MG TABLET PO SCH (09:00)
[2018-05-27] MEDS: GABAPENTIN 300 MG CAPSULE PO SCH ×3 (09:09→20:40)
[2018-05-27] MEDS: MULTIVITAMINS,THERAPEUTIC TABLET PO SCH (09:09)
[2018-05-27] MEDS: SPIRONOLACTONE 50 MG TABLET PO SCH (09:09)
[2018-05-27] MEDS: buPROPion XL 150 MG TAB.SR.24H PO SCH (09:09)
[2018-05-27] MEDS: FOLIC ACID 1 MG TABLET PO SCH (09:09)
[2018-05-27] MEDS: LORAZEPAM 0.5 MG TABLET PO SCH ×4 (09:09→20:40)
[2018-05-27] MEDS: MICONAZOLE NITRATE CREAM 15 GM TUBE TOP SCH ×2 (09:10→20:40)
[2018-05-27 12:00] VITALS: BP 128/83
[2018-05-27] MEDS: IBUPROFEN 600 MG TABLET PO PRN ×2 (13:40→19:45)
[2018-05-27] MEDS: CLONIDINE HCL 0.1 MG TABLET PO PRN ×2 (13:40→19:45)
--- NOTE | 2018-05-27 13:40 | NUR ---
PRN medication; Patient is complaining of agitation, diaphoresis, headache , pain rated 6/10 on pain scale. PRN Clonidine 0.1mg PO given and PRN Ibuprofen given for pain/headache. Will continue to monitor for effectiveness of medication.
--- NOTE | 2018-05-27 14:04 | NUR ---
PRN medication; Patient is complaining of muscle aches, PRN Robaxin 750 mg PO given for muscle aches. Will continue to monitor patient for effectiveness of medication.
[2018-05-27] MEDS: METHOCARBAMOL 750 MG TABLET PO PRN (14:09)
--- NOTE | 2018-05-27 14:33 | NUR ---
Therapist prompted client to attend group therapy.
--- NOTE | 2018-05-27 14:40 | NUR ---
Re-assessment; Patient denies pain/headache at this time. Patient appears calm and comfortable at this time. PRN medications noted to be effective.
--- NOTE | 2018-05-27 15:04 | NUR ---
Re-assessment; Patient verbalized improvement of muscle aches. PRN medication noted effective.
[2018-05-27 16:00] VITALS: BP 116/72
--- NOTE | 2018-05-27 16:16 | NUR ---
RT prompted pt to attend groups.
--- NOTE | 2018-05-27 18:09 | NUR ---
End of shift note; Patient is AOX4, presented with anxiety, stomach cramps, intermittent sweats, chills, fatigue, loss of appetite. Patient was placed on a 5 day Ativan taper . Patient remains on 1:1 supervision for safety. Patient's last CIWA score is 12 at 1600. Patient remained compliant with treatment program and medication regime. Medications were effective in reducing withdrawal symptoms. All safety measures secured. Met all needs.
[2018-05-27] MEDS: ONDANSETRON ODT 4 MG TAB.RAPDIS SL PRN (18:30)
--- NOTE | 2018-05-27 18:30 | NUR ---
PRN medication; Patient reported nausea, no emesis noted. PRN Zofran 4mg ODT given. Will continue to monitor patient.
--- NOTE | 2018-05-27 19:30 | NUR ---
START OF SHIFT Pt is a 32 y/o female admitted on 05/25/18 for medically supervised withdrawal from ETOH. Pt is on a 5 day Ativan taper, tolerating well. Last CIWA 18 and PRN Clonidine, Motrin, Robaxin, and Zofran odt administered during day shift. Pt is on a 1:1 for safety/unsteady gait. Upon assessment pt presents with anxiety, restlessness, intermittent nausea, sweats, chills, tremors, photosensitivity, sensitivity to sounds, and agitation. Medications due. Safety measures in place. 1:1 sitter at bedside. Will continue to monitor.
--- NOTE | 2018-05-27 19:45 | NUR ---
PRN CLONIDINE AND MOTRIN ADMINISTRATION Pt presents with anxiety, agitation, sweats, chills and HR 105 with palpitations r/t anxiety. Pt also reports generalized body pain 11/16. Safety measures in place. 1:1 sitter at bedside. Will continue to monitor.
[2018-05-27 20:00] VITALS: BP 119/78
--- NOTE | 2018-05-27 20:45 | NUR ---
PRN CLONIDINE AND MOTRIN REASSESSMENT Pt laying in bed more relaxed. Pt reports improvement in all symptoms including anxiety, agitation, palpitations and generalized body pain. Pt reports her S/S are tolerable. Safety measures in place. 1:1 sitter at bedside. Will continue to monitor.
[2018-05-27] MEDS: TRAZODONE 100 MG TABLET PO SCH (21:00)
--- NOTE | 2018-05-28 | NUR ---
VITALS REFUSED Pt laying in bed with eyes closed. Vitals refused. Respirations even and unlabored. Safety measures in place. 1:1 sitter at bedside. Will continue to monitor.
--- NOTE | 2018-05-28 07:30 | NUR ---
END OF SHIFT Pt is a 32 y/o female admitted on 05/25/18 for medically supervised withdrawal from ETOH. Pt is on a 5 day Ativan taper, tolerating well. Pt is on a 1:1 for safety/unsteady gait. Pt presented with anxiety, restlessness, intermittent nausea, sweats, chills, tremors, photosensitivity, sensitivity to sounds, generalized body pain, headache, and agitation. Scheduled medications and PRN Clonidine and Motrin administered, effective in S/S of withdrawal as verbalized by pt. Last CIWA 18. Pt slept 9 hours. Intake 1842 ml, void x 2, stool x 0. Safety measures in place. 1:1 sitter at bedside. Pts needs have been met. Endorsed to day shift nurse.
--- NOTE | 2018-05-28 07:30 | NUR ---
Start of shift Pt is here for medically supervised withdrawal of ETOH. Pt on 5 day Ativan taper, today is day 3. At 1999 last CIWA 18. Pt slept 9 hours last night. Pt on 1:1 for safety, sitter at bedside. Patient c/o anxiety, nausea, fatigue, fine tremors, difficulty concentrating, anhedonia, generalized body aches, flat affect and depressed mood. She is disheveled and malodorous. Room is cluttered with wrappers, empty water bottles, clothes and used linens. Drinks and food spilled on floor, in her bed and on his tray. Encouraged Pt to participate in group therapy sessions today to identify positive coping skills to maintain sobriety. All safety measures in place, bed locked/low position. Will continue to monitor for withdrawal symptoms.
[2018-05-28 08:00] VITALS: BP 116/83
[2018-05-28] MEDS: MULTIVITAMINS,THERAPEUTIC TABLET PO SCH (08:35)
[2018-05-28] MEDS: SPIRONOLACTONE 50 MG TABLET PO SCH (08:35)
[2018-05-28] MEDS: MICONAZOLE NITRATE CREAM 15 GM TUBE TOP SCH ×2 (08:35→21:38)
[2018-05-28] MEDS: FOLIC ACID 1 MG TABLET PO SCH (08:35)
[2018-05-28] MEDS: LORAZEPAM 0.5 MG TABLET PO SCH ×3 (08:36→21:38)
[2018-05-28] MEDS: GABAPENTIN 300 MG CAPSULE PO SCH ×3 (08:36→21:38)
[2018-05-28] MEDS: IBUPROFEN 600 MG TABLET PO PRN ×2 (08:36→21:39)
[2018-05-28] MEDS: ONDANSETRON ODT 4 MG TAB.RAPDIS SL PRN ×2 (08:36→17:42)
[2018-05-28] MEDS: THIAMINE HCL 100 MG TABLET PO SCH (08:36)
[2018-05-28] MEDS: buPROPion XL 150 MG TAB.SR.24H PO SCH (08:36)
[2018-05-28] MEDS: METHOCARBAMOL 750 MG TABLET PO PRN ×2 (08:36→21:39)
[2018-05-28] MEDS: HYDROXYZINE PAMOATE 25 MG CAPSULE PO PRN ×2 (08:36→15:13)
--- NOTE | 2018-05-28 08:41 | NUR ---
D/C 1:1, Pt ambulate with steady gait, denies c/o dizziness and feels well.
--- NOTE | 2018-05-28 08:41 | NUR ---
PRN Zofran 4mg SL for nausea, no emesis PRN Motrin 600 mg PO for back pain and body aches #4/10 PRN Robaxin 750 mg PO for generalized body aches PRN Vistaril 50 mg PO for anxiety.
[2018-05-28] MEDS ORDERED: LORAZEPAM 0.5 MG TABLET PO SCH (09:00)
--- NOTE | 2018-05-28 09:40 | NUR ---
Reassess Zofran- Pt reports nausea improved and she was able to eat some breakfast. Reassess Motrin- back pain improved now #05/19 Reassess Robaxin- Pt reports generalized body aches improved and resolved. Reassess Vistaril- Pt reports anxiety improved. She is in her room watching TV.
[2018-05-28 12:00] VITALS: BP 145/99
[2018-05-28] MEDS: SUMATRIPTAN SUCCINATE 50 MG TABLET PO PRN ×2 (12:47→14:09)
[2018-05-28] MEDS: CLONIDINE HCL 0.1 MG TABLET PO PRN ×2 (12:48→21:39)
--- NOTE | 2018-05-28 12:53 | NUR ---
PRN Zofran 4 mg IM for 1 episode of emesis in the toilet and nausea. PRN Clonidine 0.1 mg PO for anxiety PRN Imitrex 25 mg PO for migraine headache #12/17
--- NOTE | 2018-05-28 13:55 | NUR ---
Reassess Zofran- Pt had no more episodes of emesis, nausea resolved and she was able to eat part of her lunch. Reassess Clonidine- Pt reports anxiety improved. Reassess Imitrex- Pt reports migraine headache still present rated #6-7/10.
--- NOTE | 2018-05-28 14:10 | NUR ---
PRN Imitrex 25 mg PO for migraine #7-12/17.
--- NOTE | 2018-05-28 15:10 | NUR ---
Reassess Imitrex- Pt reports migraine headache pain now #09/16
--- NOTE | 2018-05-28 15:14 | NUR ---
PRN Vistaril 50 mg PO for anxiety
[2018-05-28 16:00] VITALS: BP 138/99
--- NOTE | 2018-05-28 16:15 | NUR ---
Reassess Vistaril- Pt reports anxiety improved.
--- NOTE | 2018-05-28 17:42 | NUR ---
PRN Zofran 4mg SL for nausea, no emesis.
--- NOTE | 2018-05-28 18:50 | NUR ---
End of shift Pt is here for medically supervised withdrawal of ETOH. Pt on 5 day Ativan taper, today is day 3. At 1600 last CIWA 16. PRN given today; Zofran, Ibuprofen, Robaxin, Vistaril, Clonidine, and Imitrex. Patient c/o anxiety, nausea, vomiting, fatigue, flushed face, fine tremors, difficulty concentrating, anhedonia, head ache, flat affect and depressed mood. She is disheveled and malodorous. PO fluids 2794 ml, voids x 7, BM x 1. Encouraged Pt to participate in group therapy sessions today to identify positive coping skills to maintain sobriety. All safety measures in place, bed locked/low position. Will continue to monitor for withdrawal symptoms.
--- NOTE | 2018-05-28 19:30 | NUR ---
Start of shift note Patient is a 32 year old female admitted on 05/25/18 for medically supervised ETOH withdrawal. Patient is on fall and seizure precautions. Pts last CIWA was 16. Pt is on a 5 day Ativan taper started on 05/26/18. Per endorsement pt had PRN Zofran, Ibuprofen, Robaxin, Vistaril, Clonidine, and Imitrex during day shift. Pt continues to present with anxiety, tremors, nausea with not emesis present, hot and cold flashes and sweats. Pt has been participating in treatment program. Pt 1:1 was d/c today. Upon rounds pt was noted to be in bed watching tv, explained plan of care and she verbalized understanding. Safety measures in place, bed locked in low position, side rails up x2, and call light within reach. Will continue to monitor.
[2018-05-28 20:00] VITALS: BP 122/85
[2018-05-28] MEDS: TRAZODONE 100 MG TABLET PO SCH (21:38)
--- NOTE | 2018-05-28 21:39 | NUR ---
PRN Clonidine,Motrin and Robaxin Pt was presenting with sweats, anxiety, agitation, bodyaches and a headache. Administered PRN Clonidine,Motrin and Robaxin, pt tolerated well and will continue to monitor.
--- NOTE | 2018-05-28 22:39 | NUR ---
PRN Clonidine,Motrin and Robaxin Reassessment Pt is resting in bed watching with eyes closed, breathing even and unlabored. Medication was effective. Safety measures in place and will continue to monitor.
--- NOTE | 2018-05-29 07:06 | NUR ---
End of shift note Patient is a 32 year old female admitted on 05/25/18 for medically supervised ETOH withdrawal. Patient is on fall and seizure precautions. Pts last CIWA was 10. Pt is on a 5 day Ativan taper started on 05/26/18. Pt had PRN Clonidine, Robaxin and Motrin during this shift. Pt was compliant with plan of care. Pt continues to present with anxiety, agitation, bodyaches, and sweats. Pt slept for 8 hours and had a total of 946 ml. Pt voided x 4 and had no bowel movements during this shift. Safety measures in place, bed locked in low position, side rails up x2, and call light within reach. Will endorse to day shift.
--- NOTE | 2018-05-29 07:30 | NUR ---
Start of shift Pt is here for medically supervised withdrawal of ETOH. Pt on 5 day Ativan taper, today is day 4. At 1999 last CIWA 10. Pt slept 8 hours last night. Patient c/o anxiety, nausea, vomiting, fatigue, flushed face, fine tremors, difficulty concentrating, anhedonia, head ache, flat affect and depressed mood. She is disheveled. Encouraged Pt to participate in group therapy sessions today to identify positive coping skills to maintain sobriety. All safety measures in place, bed locked/low position. Will continue to monitor for withdrawal symptoms.
[2018-05-29 07:34] LABS: BASOPHILS % (AUTO) 0.7 % (0.0-2.0); EOSINOPHILS # (AUTO) 0.1 K/uL (0.0-0.7); EOSINOPHILS % (AUTO) 1.6 % (0.0-7.0); HEMATOCRIT 36.2 % (31.2-41.9); HEMOGLOBIN 12.6 g/dL (10.9-14.3); LYMPHOCYTES # (AUTO) 1.8 K/uL (20.0-40.0); LYMPHOCYTES % (AUTO) 31.8 % (20.5-51.5); MEAN CORPUSCULAR HEMOGLOBIN 34.6 uug (24.7-32.8); MEAN CORPUSCULAR HGB CONC 35 g/dL (32.3-35.6); MEAN CORPUSCULAR VOLUME 99.1 fL (75.5-95.3); MONOCYTES # (AUTO) 0.6 K/uL (2.0-10.0); MONOCYTES % (AUTO) 10.5 % (0.0-11.0); NEUTROPHILS # (AUTO) 3.2 K/uL (1.8-8.9); NEUTROPHILS % (AUTO) 55.4 % (38.5-71.5); PLATELET COUNT (AUTO) 174 K/uL (179-408); RED BLOOD CELL COUNT(AUTO) 3.65 MIL/uL (3.63-4.92); WHITE BLOOD COUNT (AUTO) 5.8 K/uL (3.8-11.8)
[2018-05-29 07:49] LABS: BILIRUBIN,TOTAL 0.8 mg/dL (0.2-1.0); CREATININE 0.6 mg/dL (0.6-1.3); POTASSIUM 4.1 mmol/L (3.5-5.1); TOTAL PROTEIN, SERUM 6.8 g/dL (6.4-8.2)
[2018-05-29 08:00] VITALS: BP 96/61
[2018-05-29] MEDS: ONDANSETRON ODT 4 MG TAB.RAPDIS SL PRN (08:14)
[2018-05-29] MEDS: THIAMINE HCL 100 MG TABLET PO SCH (08:14)
[2018-05-29] MEDS: SPIRONOLACTONE 50 MG TABLET PO SCH (08:14)
[2018-05-29] MEDS: GABAPENTIN 300 MG CAPSULE PO SCH ×3 (08:15→20:44)
[2018-05-29] MEDS: buPROPion XL 150 MG TAB.SR.24H PO SCH (08:15)
[2018-05-29] MEDS: FOLIC ACID 1 MG TABLET PO SCH (08:15)
[2018-05-29] MEDS: MICONAZOLE NITRATE CREAM 15 GM TUBE TOP SCH ×2 (08:15→20:47)
[2018-05-29] MEDS: MULTIVITAMINS,THERAPEUTIC TABLET PO SCH (08:15)
[2018-05-29] MEDS: LORAZEPAM 0.5 MG TABLET PO SCH ×2 (08:15→20:44)
--- NOTE | 2018-05-29 08:18 | NUR ---
PRN Zofran 4 mg SL for nausea, no emesis.
--- NOTE | 2018-05-29 08:50 | NUR ---
PRN Robaxin 750 mg PO for generalized body aches PRN Imitrex 25 mg PO for migraine headache #8/10 PRN Motrin 600 mg PO for migraine headache #8/10
[2018-05-29] MEDS: SUMATRIPTAN SUCCINATE 50 MG TABLET PO PRN ×2 (08:52→12:57)
[2018-05-29] MEDS: IBUPROFEN 600 MG TABLET PO PRN (08:52)
--- NOTE | 2018-05-29 09:15 | NUR ---
Reassess Zofran- Pt reports nausea resolved. She was able to eat breakfast 75%.
--- NOTE | 2018-05-29 09:50 | NUR ---
Reassess Robaxin- Pt reports body aches improved. Reassess Imitrex and Motrin- migraine headache now #4-09/16
[2018-05-29 12:00] VITALS: BP 147/94
--- NOTE | 2018-05-29 12:17 | NUR ---
Therapist prompted client to attend all daily group therapy sessions.
[2018-05-29] MEDS: CLONIDINE HCL 0.1 MG TABLET PO PRN (12:56)
[2018-05-29] MEDS: ACETAMINOPHEN 325 MG TABLET PO PRN (12:57)
--- NOTE | 2018-05-29 12:58 | NUR ---
PRN Clonidine 0.1 mg PO for anxiety PRN Imitrex 25 mg PO for migraine headache #8/10 PRN Tylenol 650 mg PO for migraine headache #8/10
--- NOTE | 2018-05-29 14:00 | NUR ---
Reassess Clonidine- Pt reports anxiety not improved. MD will order extra dose of Ativan Reassess Imitrex and Tylenol- Pt reports migraine headache now #4-09/16
[2018-05-29] MEDS ORDERED: LORAZEPAM 1 MG TABLET PO ONE (14:15)
[2018-05-29 16:00] VITALS: BP 130/93
--- NOTE | 2018-05-29 18:50 | NUR ---
End of shift Pt is here for medically supervised withdrawal of ETOH. Pt on 5 day Ativan taper, today is day 4. At 1600 last CIWA 12. PRN given today; Zofran, Robaxin, Imitrex, and Motrin. Patient c/o anxiety, nausea, fatigue, flushed face, fine tremors, difficulty concentrating, anhedonia, head ache, flat affect and depressed mood. She is disheveled. Encouraged Pt to participate in group therapy sessions today to identify positive coping skills to maintain sobriety. She attended two group therapy sessions today. PO fluids 4855ml, voids x9, BMx2. All safety measures in place, bed locked/low position. Will continue to monitor for withdrawal symptoms. Endorsed to PM shift.
--- NOTE | 2018-05-29 19:00 | NUR ---
Start of Shift Receiving 32 year old female patient admitted to [facility] for medically supervised withdrawal from ETOH. Pt currently on day 4 of a 5 day Ativan taper, which she is tolerating well. Last CIWA 11 @1600. Pt received PRN Clonidine, Motrin, Zofran, Robaxin, Tylenol, and Imitrex x 2 on day shift. Pt in dark room isolative, withdrawn, anxious, agitated, visible tremors, moist, and unable to sit still. Bed low, side rails up x 2, and call castorena in reach. Will continue to monitor.
[2018-05-29 20:00] VITALS: BP 129/86
[2018-05-29] MEDS: METHOCARBAMOL 750 MG TABLET PO PRN (20:44)
--- NOTE | 2018-05-29 20:44 | NUR ---
PRN Robaxin Pt requested Robaxin for body aches and pains 01/17. Medication given per order. Will monitor effect.
[2018-05-29] MEDS: TRAZODONE 100 MG TABLET PO SCH (21:42)
--- NOTE | 2018-05-29 21:44 | NUR ---
Reassess PRN Robaxin Medication effective per pt, pain 5/10. Will continue to monitor.
--- NOTE | 2018-05-30 | NUR ---
CIWA deferred/Vitals refused Pt is resting with eyes closed. Respirations are even and unlabored. CIWA deferred and pt refused vitals. Will continue to monitor.
--- NOTE | 2018-05-30 04:00 | NUR ---
CIWA deferred/Vitals refused Pt is resting with eyes closed. Respirations are even and unlabored. CIWA deferred and pt refused vitals. Will continue to monitor.
--- NOTE | 2018-05-30 06:44 | NUR ---
End of Shift Endorsing 32 year old female patient admitted to [facility] for medically supervised withdrawal from ETOH. Pt currently on day 5 of a 5 day Ativan taper, which she is tolerating well. Last CIWA 12 . Pt received PRN Robaxin on overnight stocker. Pt in bed resting with eyes closed. Respirations are even and unlabored. Bed low, side rails up x 2, and call castorena in reach. PO intake 945 ml, voided x 2 BM x 0, and slept 9 hours.
--- NOTE | 2018-05-30 07:59 | NUR ---
START OF SHIFT Pt is a 32 yr old female, AA&Ox4. pt was admitted on 05/25/18 for ETOH withdrawal and is on 5 day Ativan taper as ordered. Received report from overnight stocker nurse. Pt received Robaxin PRN during the night. Last CIWA score was 12. Pt slept for 9 hrs. Pt is c/o left lower abdominal pain and lower back pain, headache 6/10, anxiety and restlessness. Pt is observed wtih fine tremors on BUE. Pt was encouraged increase fluid intake for hydration. Safety precautions observed. Call light is with in reach. will continue to monitor.
[2018-05-30 08:08] VITALS: BP 102/77
[2018-05-30] MEDS ORDERED: LORAZEPAM 0.5 MG TABLET PO SCH (09:00)
[2018-05-30] MEDS: THIAMINE HCL 100 MG TABLET PO SCH (09:21)
[2018-05-30] MEDS: buPROPion XL 150 MG TAB.SR.24H PO SCH (09:22)
[2018-05-30] MEDS: GABAPENTIN 300 MG CAPSULE PO SCH ×3 (09:22→20:48)
[2018-05-30] MEDS: SPIRONOLACTONE 50 MG TABLET PO SCH (09:22)
[2018-05-30] MEDS: FOLIC ACID 1 MG TABLET PO SCH (09:22)
[2018-05-30] MEDS: IBUPROFEN 600 MG TABLET PO PRN ×2 (09:22→20:48)
[2018-05-30] MEDS: MULTIVITAMINS,THERAPEUTIC TABLET PO SCH (09:22)
--- NOTE | 2018-05-30 09:22 | NUR ---
PRN GIVEN Pt was c/o left lower quadrant pain and lower back pain 10/17. Motrin 600mg PO PRN was given as ordered. Encouraged increase fluid intake. Will continue to monitor.
[2018-05-30] MEDS: MICONAZOLE NITRATE CREAM 15 GM TUBE TOP SCH ×2 (09:23→20:49)
--- NOTE | 2018-05-30 10:22 | NUR ---
PRN RE-ASSESSMENT Motrin PRN was effective. Pt continues to c/o lower back pain but states pain level is now 2/10. Encouraged increase fluid intake. Will continue to monitor.
[2018-05-30 12:00] VITALS: BP 134/100
[2018-05-30] MEDS: METHOCARBAMOL 750 MG TABLET PO PRN ×2 (12:49→20:48)
[2018-05-30] MEDS: CLONIDINE HCL 0.1 MG TABLET PO PRN (12:49)
--- NOTE | 2018-05-30 12:49 | NUR ---
PRN GIVEN Pt was c/o increase anxiety and lower back pain. Pt was given Clonidine 0.1mg PRN and Robaxin 750mg PRN
--- NOTE | 2018-05-30 13:49 | NUR ---
PRN RE-ASSESSMENT Clonidine PRN and Robaxin PRN was effective.
[2018-05-30 16:30] VITALS: BP 119/83
--- NOTE | 2018-05-30 19:10 | NUR ---
END OF SHIFT Pt is a 32 yr old female, AA&Ox4. pt was admitted on 05/25/18 for ETOH withdrawal and is on an extended Ativan taper ordered. Pt has been cooperative with medication regimen and plan of care. Pt was observed attending group therapy. Pt was c/o increase anxiety, agitation, sweats, chills, and lower back pain. Pt was observed with fine tremors on BUE. Pt received Motrin PRN, Clonidine PRN Robaxin PRN during the day. Medication was effective. Pt was encouraged increase fluid intake. Safety precautions observed. Last CIWA score was 9. Endorsed to art history instructor nurse to continue with care.
--- NOTE | 2018-05-30 19:30 | NUR ---
START OF SHIFT Pt is a 32 y/o female admitted on 05/25/18 for medically supervised withdrawal from ETOH. Pt is on a 5 day Ativan taper, tolerating well. Last CIWA 9 and PRN Motrin, Clonidine and Robaxin administered during day shift. Upon assessment pt presents with anxiety, agitation, restlessness, generalized body aches, chills, headache, slumped posture and unkempt room. Medications due. Safety measures in place. Call light within reach. Will continue to monitor.
[2018-05-30 20:00] VITALS: BP 135/94
[2018-05-30] MEDS: LORAZEPAM 1 MG TABLET PO SCH (20:48)
--- NOTE | 2018-05-30 20:48 | NUR ---
PRN MOTRIN AND ROBAXIN ADMINISTRATION Pt reports headache and generalized body aches. Safety measures in place. Call light within reach. Will continue to monitor.
--- NOTE | 2018-05-30 21:48 | NUR ---
PRN MOTRIN AND ROBAXIN REASSESSMENT Pt reports headache and generalized body aches reduced to tolerable level. Pt appears comfortable. Safety measures in place. Call light within reach. Will continue to monitor.
[2018-05-30] MEDS: TRAZODONE 100 MG TABLET PO SCH (21:57)
--- NOTE | 2018-05-31 | NUR ---
VITALS REFUSED Pt laying in bed with eyes closed, vitals refused. Respirations even and unlabored. Safety measures in place. Call light within reach. Will continue to monitor.
[2018-05-31] MEDS: METHOCARBAMOL 750 MG TABLET PO PRN ×3 (05:55→21:03)
[2018-05-31] MEDS: CLONIDINE HCL 0.1 MG TABLET PO PRN ×2 (05:55→13:38)
--- NOTE | 2018-05-31 05:55 | NUR ---
PRN CLONIDINE AND ROBAXIN ADMINISTRATION Pt reports anxiety, chills, intermittent sweats, and body aches. Pt requests Clonidine and Robaxin. Safety measures in place. Call light within reach. Will continue to monitor.
--- NOTE | 2018-05-31 06:55 | NUR ---
PRN CLONIDINE AND ROBAXIN REASSESSMENT Pt laying in bed with eyes closed, medications noted effective. Respirations even and unlabored. Safety measures in place. Call light within reach. Will continue to monitor.
--- NOTE | 2018-05-31 07:16 | NUR ---
END OF SHIFT Pt is a 32 y/o female admitted on 05/25/18 for medically supervised withdrawal from ETOH. Pt is on a 5 day Ativan taper, tolerating well. Pt presented with anxiety, agitation, restlessness, generalized body aches, chills, headache, slumped posture and unkempt room. Scheduled medications and PRN Motrin, Clonidine, and Robaxin x2 administered, effective in S/S of withdrawal as verbalized by pt. Last CIWA 16. Pt slept 8 hours. Intake 2384 ml, void x 2, stool x 0. Safety measures in place. Call light within reach. Pts needs have been met. Endorsed to day shift nurse.
[2018-05-31 08:00] VITALS: BP 118/72
--- NOTE | 2018-05-31 08:00 | NUR ---
START OF SHIFT Pt is a 32 yr old female, AA&Ox4. Pt was admitted on 05/25/18 for ETOH withdrawal and is on an extended Ativan taper as ordered. Received report from shift production associate nurse. Pt received Motrin PRN Clonidine PRN and Robaxin PRN during the night. Last CIWA score was 16. Pt slept for 8 hrs. Pt states she woke up with increase anxiety but Clonidine and Robaxin for pain was effective. Pt is observed with fine tremors on BUE. Skin is warm and clammy to touch. Pt was encouraged increase fluid intake for hydration. Safety precautions observed. Call light is with in reach. Will continue to monitor.
[2018-05-31] MEDS: SPIRONOLACTONE 50 MG TABLET PO SCH (08:39)
[2018-05-31] MEDS: GABAPENTIN 300 MG CAPSULE PO SCH ×3 (08:39→21:04)
[2018-05-31] MEDS: MICONAZOLE NITRATE CREAM 15 GM TUBE TOP SCH ×2 (08:39→21:04)
[2018-05-31] MEDS: MULTIVITAMINS,THERAPEUTIC TABLET PO SCH (08:39)
[2018-05-31] MEDS: buPROPion XL 150 MG TAB.SR.24H PO SCH (08:40)
[2018-05-31] MEDS: LORAZEPAM 1 MG TABLET PO SCH (08:40)
[2018-05-31] MEDS: FOLIC ACID 1 MG TABLET PO SCH (08:40)
[2018-05-31] MEDS: THIAMINE HCL 100 MG TABLET PO SCH (08:40)
[2018-05-31 12:00] VITALS: BP 137/77
--- NOTE | 2018-05-31 13:18 | NUR ---
Therapist prompted client to attend all daily group therapy sessions.
--- NOTE | 2018-05-31 13:45 | NUR ---
PRN GIVEN Pt is c/o increase anxiety and headache 12/17. Pt was given Clonidine 0.1mg PO PRN and Robaxin 750mg PO PRN as ordered. encouraged increase fluid intake. Will continue to monitor.
[2018-05-31] MEDS ORDERED: SUMA50TA PO (14:13)
[2018-05-31] MEDS ORDERED: CLON0.1T14 PO (14:13)
[2018-05-31] MEDS ORDERED: GABA-534 PO ×2 (14:13)
[2018-05-31] MEDS ORDERED: SPIR50TA5 PO (14:13)
--- NOTE | 2018-05-31 14:45 | NUR ---
PRN RE-ASSESSMENT Clonidine PRN and Robaxin PRN was mildly effective. Pt continues to c/o anxiety. Pt is noted with fine tremors on BUE. Pt continues to c/o headache but pain level subsided. Will continue to monitor.
[2018-05-31 16:30] VITALS: BP 109/55
[2018-05-31] MEDS: HYDROXYZINE PAMOATE 25 MG CAPSULE PO PRN (17:02)
[2018-05-31] MEDS: IBUPROFEN 600 MG TABLET PO PRN (17:02)
--- NOTE | 2018-05-31 17:06 | NUR ---
PRN Vistaril and Motrin Pt reports bilateral hip pain 7/10, anxiety, and restlessness. PRN Vistaril and Motrin administered.
--- NOTE | 2018-05-31 19:00 | NUR ---
END OF SHIFT Pt is a 32 yr old female AA&Ox4. Pt was admitted on 05/25/18 for ETOH withdrawal and completed a Ativan taper as ordered. Pt has been cooperative with medication regimen and plan of care. Pt was observed attending group therapy. Pt was c/o increase anxiety, sweats, chills and headache. Pt was observed with fine tremors on BUE. Pt was given Clonidine PRN, Robaxin PRN, Motrin PRN and Vistaril PRN during the day. Medication was effective. Last CIWA score was 11. Pt is to be discharged home tomorrow. Endorsed to shift boss nurse to continue with care.
--- NOTE | 2018-05-31 19:37 | NUR ---
START OF SHIFT NOTE Rcvd report from outgoing nurse. Pt is a 32 y/o female A/O to person, place, time, and purpose. Pt was admitted for medically supervised withdrawal from ETOH. Pt completed a modified 6 day Ativan taper and is scheduled for discharge on 06/01. Pt has been presenting w/ body aches, anxiety, fine tremors, and restlessness. Pt rcvd PRN Clonidine, Robaxin, Motrin, and Vistaril and were noted effective by outgoing nurse. Last CIWA 11 @ 1600. Call light is within reach. Pt will continue to be monitored and needs met.
[2018-05-31 20:00] VITALS: BP 115/78
--- NOTE | 2018-05-31 21:03 | NUR ---
PRN ROBAXIN AND TYLENOL ADMINISTRATION Robaxin 750mg for body aches/pain and Tylenol 650mg for headache given. Will reassess pt in 1hr.
[2018-05-31] MEDS: TRAZODONE 100 MG TABLET PO SCH (21:04)
[2018-05-31] MEDS: ACETAMINOPHEN 325 MG TABLET PO PRN (21:04)
--- NOTE | 2018-05-31 22:03 | NUR ---
PRN ROBAXIN AND TYLENOL REASSESSMENT Pt is in bed w/ her eyes closed. Pt's respirations are unlabored and even.
--- NOTE | 2018-06-01 | NUR ---
CIWA DEFERRED. V/S REFUSED Pt is in bed w/ her eyes closed. Pt's respirations are unlabored and even.
[2018-06-01 04:00] VITALS: BP 119/81
[2018-06-01] MEDS: METHOCARBAMOL 750 MG TABLET PO PRN (04:18)
[2018-06-01] MEDS: CLONIDINE HCL 0.1 MG TABLET PO PRN (04:19)
--- NOTE | 2018-06-01 04:19 | NUR ---
PRN ROBAXIN AND CLONIDINE ADMINISTRATION Robaxin 750mg for muscle spasms in legs and Clonidine 0.1mg for anxiety were given. Will reassess pt in 1hr.
--- NOTE | 2018-06-01 07:25 | NUR ---
END OF SHIFT NOTE Endorsed pt to oncoming nurse. Pt is a 32 y/o female A/O to person, place, time, and purpose. Pt was admitted for medically supervised withdrawal from ETOH. Pt completed a modified 6 day Ativan taper and is scheduled for discharge on 06/01. Pt continued presenting w/ body aches, anxiety, fine tremors, and restlessness. Pt denies any S/I or H/I. PRN Clonidine, Robaxin, Tylenol, and Vistaril and were noted effective. Pts fluid intake was 1000ml and she slept for 7.5hrs. Last CIWA 11 @ 0400. Call light is within reach.
[2018-06-01 08:00] VITALS: BP 110/69
--- NOTE | 2018-06-01 08:00 | NUR ---
START OF SHIFT Pt is a 32 yr old female, AA&Ox4. Pt was admitted on 05/25/18 for ETOH withdrawal and completed an extended Ativan taper as ordered. Received report from slot shift supervisor nurse. Pt received Robaxin PRN x2, Clonidine PRN and Tylenol PRN during the night. Last CIWA score was 11. Pt slept for 8 hrs. Pt is c/o anxiety but states she is able to cope with anxiety level. Pt is observed wtih fine tremors on BUE. Skin is intact, warm and dry to touch. Pt is to be discharged home today. Pt was encouraged increase fluid intake for hydration. Safety precautions observed. Call light is with in reach. Will continue to monitor.
[2018-06-01] MEDS: SPIRONOLACTONE 50 MG TABLET PO SCH (08:38)
[2018-06-01] MEDS: MULTIVITAMINS,THERAPEUTIC TABLET PO SCH (08:38)
[2018-06-01] MEDS: buPROPion XL 150 MG TAB.SR.24H PO SCH (08:38)
[2018-06-01] MEDS: THIAMINE HCL 100 MG TABLET PO SCH (08:38)
[2018-06-01] MEDS: FOLIC ACID 1 MG TABLET PO SCH (08:38)
[2018-06-01] MEDS: GABAPENTIN 300 MG CAPSULE PO SCH (08:38)
[2018-06-01] MEDS: MICONAZOLE NITRATE CREAM 15 GM TUBE TOP SCH (08:39)
--- NOTE | 2018-06-01 10:20 | NUR ---
DISCHARGE NOTE Pt is a 32 yr old female, AA&Ox4. Pt was admitted on 05/25/18 for ETOH withdrawal and completed an extended Ativan taper as ordered. Pt has been cooperative with medication regimen and plan of care. Pt was c/o anxiety but was able to angela anxiety level. Pt was educated on discharged summary and prescriptions. Pt was able to verbalize understanding. Pt was discharged home at [facility] in stable condition. Pt was given all belongings and valuables. No home medication was brought.
== END 2018-06-01 10:07 | disposition home or self-care (01) | DRG 895 ==
LOC: SRC 16:35
PROVIDERS: ADMIT Family Medicine Addiction Medicine; ATTEND Family Medicine Addiction Medicine
PROC: HZ2ZZZZ Detoxification Services for Substance Abuse Treatment (ICD-10-PCS; principal; 2018-05-25)
PROC: HZ31ZZZ Individual Counseling for Substance Abuse Treatment, Behavioral (ICD-10-PCS; 2018-05-26)
PROC: HZ41ZZZ Group Counseling for Substance Abuse Treatment, Behavioral (ICD-10-PCS; 2018-05-28)
DX: F10.230 Alcohol dependence with withdrawal, uncomplicated (principal); F33.2 Major depressive disorder, recurrent severe without psychotic features; Y90.9 Presence of alcohol in blood, level not specified; G43.909 Migraine, unspecified, not intractable, without status migrainosus; F41.1 Generalized anxiety disorder; F17.210 Nicotine dependence, cigarettes, uncomplicated; Z90.49 Acquired absence of other specified parts of digestive tract; F41.0 Panic disorder [episodic paroxysmal anxiety]; G47.00 Insomnia, unspecified; Z79.899 Other long term (current) drug therapy; K13.0 Diseases of lips; F50.9 Eating disorder, unspecified; F43.10 Post-traumatic stress disorder, unspecified; R74.0 Nonspecific elevation of levels of transaminase and lactic acid dehydrogenase [LDH]; R55 Syncope and collapse; Z87.81 Personal history of (healed) traumatic fracture
CPT/HCPCS: 36415; 70030-TC; 80307; 83690; 83735; 84443; 84703; 85025; 86592; 86705; 86803; 87340; 87806; G0480; J2405; Q0162; Q0163